=== PATIENT | female | born 1980 | race Caucasian/White ===

== ENCOUNTER 2016-12-10 11:14 | Observation (INO) | payer BC, OTHER ==
[~2016-12-10] VITALS: Ht 157.5 cm; Wt 100.4 kg
[~2016-12-10 11:14] MED LIST: FEXO1TAB58 PO
[2016-12-10] MEDS ORDERED: ALL300 PO (11:39)
[2016-12-10] MEDS ORDERED: OMEG10002 PO (11:39)
[2016-12-10] MEDS ORDERED: ATEN-173 PO (11:39)
[2016-12-10] MEDS ORDERED: HYDR25TA4 PO (11:39)
[2016-12-10 12:16] LABS: BASO % 0.1 %; BASO ABS # 0.01 K/uL (0-0.2); COMPLETE YES; EOS % 1.2 %; HEMATOCRIT 43.1 % (37-47); IG% 0.3 %; LYMPH % 27.1 %; LYMPH ABS # 2.66 K/uL (1.2-3.4); MEAN CELL VOLUME 86.7 fL (80-100); MEAN CORPUSCULAR HGB CONC 34.6 g/dl (32-36); MEAN PLATELET VOLUME 11.5 fL (7.4-10.4); MONO % 5.3 %; PLATELET COUNT 277 K/uL (130-400); RED BLOOD COUNT 4.97 M/uL (4.2-5.4); WHITE BLOOD COUNT 9.83 K/uL (4.8-10.8)
[2016-12-10 12:27] LABS: PROTHROMBIN TIME (PATIENT) 10.8 SECONDS (9.0-12.0)
--- NOTE | 2016-12-10 12:33 | DIAGNOSTIC IMAGING REPORT ---
CHEST ONE VIEW PORTABLE CLINICAL HISTORY: chest pain, palpitations cardiac arrhythmia COMPARISON STUDY: No previous studies for comparison. FINDINGS: The bones soft tissues and hemidiaphragms are normal. The cardiomediastinal silhouette is normal. The lungs are clear. The pulmonary vasculature is normal. IMPRESSION: Negative chest. Electronically signed by: Jose Alston M.D. 12/10/2016 12:32 PM Dictated Date/Time: 12/10/2016 12:32 PM
[2016-12-10 12:39] LABS: ALT/SGPT 44 U/L (12-78); AST/SGOT 19 U/L (15-37); BLOOD UREA NITROGEN 17 mg/dl (7-18); BUN/CREATININE RATIO 19.8 (10-20); CALCIUM 9.4 mg/dl (8.5-10.1); CARBON DIOXIDE 32 mmol/L (21-32); CHLORIDE 100 mmol/L (98-107); CREATININE 0.88 mg/dl (0.60-1.20); GLUCOSE 100 mg/dl (70-99); SODIUM 140 mmol/L (136-145)
[2016-12-10 12:50] LABS: ALB/GLOB RATIO 0.9 (0.9-2); ALKALINE PHOSPHATASE 40 U/L (45-117); THYROID STIMULATING HORMONE 0.985 uIu/ml (0.300-4.500)
--- NOTE | 2016-12-10 13:36 | EMERGENCY ROOM VISIT NOTE ---
History First contact with patient: 11:57 Chief Complaint: IRREGULAR HEARTBEAT Stated Complaint: IRREGULAR HEARTBEAT Nursing Triage Summary: pt c/o light headed and fell yesterday and has a ache in her chest and is concerned that she is in A fib has ahx of tachycardia and takes atenlol History of Present Illness The patient is a 36 year old female who presents to the Emergency Room with complaints of chest pain, dyspnea and tachycardia the patient states her symptoms started yesterday. The patient states that she had a syncopal episode yesterday. She states that she has felt palpitations, chest discomfort, dyspnea and tachycardia since then. She rates her discomfort a 2/10. She denies striking her head or having headache, nausea, vomiting or blurry vision. She denies any abdominal pain, nausea or vomiting. She denies any extremity swelling or pain. The patient has a history of tachycardia for which she takes atenolol. She states that she has had a Holter monitor in the past. She states she thought she could be in atrial fibrillation because her heart felt fast and irregular. She has never had atrial fibrillation in the past. The patient's mother of a pulmonary embolus. The patient denies any personal history of DVT or PE. Review of Systems A 10 system review of systems was completed with positives and pertinent negatives listed in the HPI. Past Medical/Surgical History Medical Problems: (1) Endometriosis (2) GERD (gastroesophageal reflux disease) (3) Hx of symptomatic hypotension (4) IgA nephropathy (5) Inappropriate sinus tachycardia (6) Obesity, morbid, BMI 40.0-49.9 (7) VERONICA (obstructive sleep apnea) (8) PCOS (polycystic ovarian syndrome) (9) Psoriasis (10) Sinus tachycardia (11) Syncope Surgical Problems: (1) H/O cystoscopy (2) History of dental surgery (3) History of hysterectomy (4) S/P appendectomy (5) S/P tonsillectomy Social History Smoking Status: Former Smoker Alcohol Use: none Marital Status: Housing Status: lives with significant other Occupation Status: employed Current/Historical Medications Scheduled Allopurinol (Allopurinol), 300 MG PO QAM Atenolol (Tenormin), 25 MG PO BID Fluticasone Propionate (Nasal) (Flonase Allergy Relief), 2 SPRAYS BENNIE DAILY Hydrochlorothiazide (Hctz), 25 MG PO QAM [place]-3 Fatty Acids (Fish Oil), 1,000 UNITS PO TIDM Scheduled PRN Ondansetron Hcl (Zofran), 8 MG PO Q8 PRN for Nausea Triamcinolone Acet (Aristocort 0.1%), 1 APPLN EXT BID PRN for rash Allergies Coded Allergies: Iodine (Verified Allergy, Mild, HIVES, 12/10/16) Penicillins (Verified Allergy, Mild, HIVES, 12/10/16) Shellfish (Verified Allergy, Mild, HIVES, 12/10/16) Physical Exam Vital Signs Date Time Temp Pulse Resp B/P Pulse Ox O2 Delivery O2 Flow Rate FiO2 12/10/16 14:37 97 Room Air 12/10/16 14:27 97 14 110/91 97 Room Air 12/10/16 13:31 83 16 124/96 97 Room Air 12/10/16 11:35 109 12/10/16 11:15 37.1 110 16 131/85 96 Room Air Physical Exam VITALS: Vitals are noted on the nurse's note and reviewed by myself. Vital signs stable. The patient is tachycardic with heart rate of 110 bpm. Her oxygen saturation is 96% on room air. GENERAL: This is a 36-year-old female, in no acute distress, nondiaphoretic, well-developed well-nourished. SKIN: The skin was without rashes, erythema, edema, or bruising. There is no tenting of the skin. Capillary reflex less than 2 seconds. HEAD: Normocephalic atraumatic. EARS: External auditory canals clear, tympanic membranes pearly meeks without erythema or effusion bilaterally. EYES: Pupils equal round and reactive to light and accommodation. Conjunctivae without injection, sclerae without icterus. Extraocular movements intact. NOSE: Patent, turbinates without inflammation or discharge. MOUTH: Mucous membranes moist. Tonsils are not enlarged. Pharynx without erythema or exudate. Uvula midline. Airway patent. Tongue does not deviate. NECK: Supple without nuchal rigidity. No JVD. HEART: Fast rate and regular rhythm without murmurs gallops or rubs. LUNGS: Clear to auscultation bilaterally without wheezes, rales or rhonchi. No retractions or accessory muscle use. ABDOMEN: Positive bowel sounds x 4. Soft, nontender, without masses or organomegaly. Hartley sign negative. MUSCULOSKELETAL: No muscle atrophy, erythema, or edema noted. Full range of motion in all extremities. Normal gait. Strength 5/5 throughout. NEURO: Patient was alert and oriented to person place and time. No focal neurological deficits. Medical Decision & Procedures ER Provider Diagnostic Interpretation: [~ rep ct add3]] CHEST ONE VIEW PORTABLE CLINICAL HISTORY: chest pain, palpitations cardiac arrhythmia COMPARISON STUDY: No previous studies for comparison. FINDINGS: The bones soft tissues and hemidiaphragms are normal. The cardiomediastinal silhouette is normal. The lungs are clear. The pulmonary vasculature is normal. IMPRESSION: Negative chest. CHEST CTA for PULMONARY ARTERIES CT DOSE: 540.78 mGy.cm HISTORY: Chest pain dyspnea TECHNIQUE: Multiaxial CT images of the chest were performed following the intravenous administration of contrast to evaluate the pulmonary arteries. Maximal intensity projection images were also obtained. COMPARISON STUDY: None. FINDINGS: There is a normal caliber thoracic aorta with no evidence for dissection. There is no evidence for pulmonary embolus. No pleural effusions. No pneumothorax. The liver and spleen are unremarkable. No mediastinal or hilar lymphadenopathy. The central airways are patent. The lungs are clear. IMPRESSION: No evidence for pulmonary embolus. Laboratory Results 12/10/16 11:55 Red Blood Count 4.97, Mean Corpuscular Volume 86.7, Mean Corpuscular Hemoglobin 30.0, Mean Corpuscular Hemoglobin Concent 34.6, Mean Platelet Volume 11.5, Neutrophils (%) (Auto) 66.0, Lymphocytes (%) (Auto) 27.1, Monocytes (%) (Auto) 5.3, Eosinophils (%) (Auto) 1.2, Basophils (%) (Auto) 0.1, Neutrophils # (Auto) 6.49, Lymphocytes # (Auto) 2.66, Monocytes # (Auto) 0.52, Eosinophils # (Auto) 0.12, Basophils # (Auto) 0.01 12/10/16 11:55 Test 12/10/16 00:00 12/10/16 11:55 12/10/16 11:57 12/10/16 12:03 Urine Color DK YELLOW Urine Appearance CLEAR (CLEAR) Urine pH 6.0 (4.5-7.5) Urine Specific [place] 1.037 (1.000-1.030) Urine Protein 3+ (NEG) Urine Glucose (UA) NEG (NEG) Urine Ketones 2+ (NEG) Urine Occult Blood 3+ (NEG) Urine Nitrite NEG (NEG) Urine Bilirubin NEG (NEG) Urine Urobilinogen NEG (NEG) Urine Leukocyte Esterase NEG (NEG) Urine WBC (Auto) 1-5 /hpf (0-5) Urine RBC (Auto) 10-30 /hpf (0-4) Urine Hyaline Casts (Auto) 10-30 /lpf (0-5) Urine Epithelial Cells (Auto) >30 /lpf (0-5) Urine Bacteria (Auto) NEG (NEG) Urine Test NEG (NEG) White Blood Count 9.83 K/uL (4.8-10.8) Red Blood Count 4.97 M/uL (4.2-5.4) Hemoglobin 14.9 g/dL (12.0-16.0) Hematocrit 43.1 % (37-47) Mean Corpuscular Volume 86.7 fL (80-100) Mean Corpuscular Hemoglobin 30.0 pg (25-34) Mean Corpuscular Hemoglobin Concent 34.6 g/dl (32-36) Platelet Count 277 K/uL (130-400) Mean Platelet Volume 11.5 fL (7.4-10.4) Neutrophils (%) (Auto) 66.0 % Lymphocytes (%) (Auto) 27.1 % Monocytes (%) (Auto) 5.3 % Eosinophils (%) (Auto) 1.2 % Basophils (%) (Auto) 0.1 % Neutrophils # (Auto) 6.49 K/uL (1.4-6.5) Lymphocytes # (Auto) 2.66 K/uL (1.2-3.4) Monocytes # (Auto) 0.52 K/uL (0.11-0.59) Eosinophils # (Auto) 0.12 K/uL (0-0.5) Basophils # (Auto) 0.01 K/uL (0-0.2) RDW Standard Deviation 40.7 fL (36.4-46.3) RDW Coefficient of Variation 12.8 % (11.5-14.5) Immature Granulocyte % (Auto) 0.3 % Immature Granulocyte # (Auto) 0.03 K/uL (0.00-0.02) Prothrombin Time 10.8 SECONDS (9.0-12.0) Prothromb Time International Ratio 1.0 (0.9-1.1) Activated Partial Thromboplast Time 25.8 SECONDS (21.0-31.0) Partial Thromboplastin Ratio 1.0 Anion Gap 8.0 mmol/L (3-11) Est Creatinine Clear Calc Drug Dose 98.6 ml/min Estimated GFR () 98.7 Estimated GFR (Non- 85.1 BUN/Creatinine Ratio 19.8 (10-20) Calcium Level 9.4 mg/dl (8.5-10.1) Total Bilirubin 0.8 mg/dl (0.2-1) Aspartate Amino Transf (AST/SGOT) 19 U/L (15-37) Alanine Aminotransferase (ALT/SGPT) 44 U/L (12-78) Alkaline Phosphatase 40 U/L (45-117) Total Creatine Kinase 98 U/L (26-192) Troponin I < 0.015 ng/ml (0-0.045) Total Protein 7.1 gm/dl (6.4-8.2) Albumin 3.4 gm/dl (3.4-5.0) Globulin 3.7 gm/dl (2.5-4.0) Albumin/Globulin Ratio 0.9 (0.9-2) Thyroid Stimulating Hormone (TSH) 0.985 uIu/ml (0.300-4.500) Magnesium Level 1.8 mg/dl (1.8-2.4) Bedside Troponin I 0.000 ng/ml (0-0.045) Medications Administered Medications (Trade) Dose Ordered Sig/Carolyn Route Start Time Stop Time Status Last Admin Dose Admin Potassium Chloride (Klor-Con M10) 10 meq NOW STAT PO 12/10/16 14:24 12/10/16 14:26 DC 12/10/16 15:04 10 MEQ Potassium Chloride 10 meq 10 meq NOW STAT IV 12/10/16 14:24 12/10/16 14:26 DC 12/10/16 15:04 10 MEQ Sodium Chloride (Nss 1000ml) 1,000 ml @ 999 mls/hr Q1H1M STAT IV 12/10/16 14:24 12/10/16 15:24 DC 12/10/16 15:04 999 MLS/HR Procedure The patient was monitored on a monitoring tech. She maintained a normal sinus rhythm as well as sinus tachycardia initially during her visit. ECG Indication: chest pain Rate (beats per minute): 109 Rhythm: sinus tachycardia Findings: nonspecific-ST abn ED Course The patient was seen and examined. Previous visits were reviewed. The patient does not have a fever or leukocytosis. She does not have any significant electrolyte abnormality. Troponin was not elevated. Potassium was low at 3.0. TSH was within normal limits. INR was 1.0. Urinalysis reveals hematuria and proteinuria. The patient states is typical for her secondary to her IgA nephropathy. Initial EKG revealed a sinus tachycardia. There are nonspecific ST changes which was likely rate related. A repeat EKG when her heart rate improved showed a normal sinus rhythm with improvement in the nonspecific ST changes The patient presents to the emergency department with tachycardia, chest pain, dyspnea and syncope secondary to her symptoms. The patient has a history of tachycardia and takes atenolol. Given the above findings and the fact that her mother from pulmonary embolus, the patient underwent CT imaging of the chest to evaluate for PE. This was negative. The patient does list a history of shellfish allergy. The patient states that she has never eaten shellfish but has noted redness to her hands if she touches it. She denies any iodine allergy that she knows of and states she has not come into contact with iodine. This was discussed with Dr. lazaro. The iversol contrast media does not have a cross-reactivity with shellfish allergy. Therefore, the patient underwent imaging and had no complications with the contrast. The patient would benefit from further evaluation and management the hospital given that she had a syncopal episode. This may represent a cardiogenic syncope. The case was discussed with the [facility] [place] and they will evaluate the patient. The case was discussed with Dr. Lorenzo who agrees with the assessment and treatment plan. Medical Decision DIFFERENTIAL DIAGNOSIS: Aortic dissection, myocarditis, pericarditis, cervical disc disease, costochondritis, herpes zoster, rib fracture, pleuritis, pneumonia , pulmonary embolus, tension pneumothorax, anxiety disorder, somatoform disorder , choledocholithiasis, status, esophagitis, esophageal spasm, esophageal reflux , esophageal rupture, pancreatitis, peptic ulcer disease, cardiac ischemia, ST elevation PA, acute coronary syndrome, arrhythmia, coronary artery vasospasm. vavular heart disease, coronary artery disease, among others. Impression Primary Impression: Sinus tachycardia Additional Impressions: Syncope Hypokalemia Precordial chest pain Dyspnea Departure Information Dispostion Admitted as an inpatient Condition GOOD Referrals Sunil Beard M.D. (PCP) Patient Instructions My [facility] Problem Qualifiers Additional Impressions: Syncope Syncope type: unspecified Qualified Codes: R55 - Syncope and collapse Dyspnea Dyspnea type: shortness of breath Qualified Codes: R06.02 - Shortness of breath
--- NOTE | 2016-12-10 14:06 | DIAGNOSTIC IMAGING REPORT ---
CHEST CTA for PULMONARY ARTERIES CT DOSE: 540.78 mGy.cm HISTORY: Chest pain dyspnea TECHNIQUE: Multiaxial CT images of the chest were performed following the intravenous administration of contrast to evaluate the pulmonary arteries. Maximal intensity projection images were also obtained. COMPARISON STUDY: None. FINDINGS: There is a normal caliber thoracic aorta with no evidence for dissection. There is no evidence for pulmonary embolus. No pleural effusions. No pneumothorax. The liver and spleen are unremarkable. No mediastinal or hilar lymphadenopathy. The central airways are patent. The lungs are clear. IMPRESSION: No evidence for pulmonary embolus. Electronically signed by: Jose Alston M.D. 12/10/2016 2:05 PM Dictated Date/Time: 12/10/2016 2:03 PM
[2016-12-10] MEDS ORDERED: OPTIRAY 320 IV PRN (14:15)
[2016-12-10] MEDS ORDERED: POTASSIUM CHLORIDE 10 MEQ / 100ML WTR IV STA (14:24)
[2016-12-10] MEDS ORDERED: POTASSIUM CHLORIDE 10 MEQ TABCR PO STA (14:24)
[2016-12-10] MEDS ORDERED: SODIUM CHLORIDE 0.9% 1000ML 1,000 ML IV STA (14:24)
[2016-12-10 14:37] VITALS: O2SAT 97; Ht 157.5 cm; Wt 100.4 kg
[2016-12-10 14:48] LABS: PREG INTERNAL NEGATIVE QC NEG CLEAR BACKGROUND; PREG INTERNAL POSITIVE QC POS CONTROL LINE
[2016-12-10 14:59] LABS: URINE APPEARANCE CLEAR (CLEAR); URINE BILIRUBIN NEG (NEG); URINE COLOR DK YELLOW; URINE EPITHELIAL CELL AUTO >30 /lpf (0-5); URINE NITRITE NEG (NEG); URINE SPECIFIC GRAVITY 1.037 (1.000-1.030); UROBILINOGEN NEG (NEG); ZZUR CULT IF INDIC CLEAN CATCH NO
[2016-12-10 15:11] LABS: MANUAL MICROSCOPIC REQUIRED? NO; REVIEW REQ? YES
[2016-12-10] MEDS ORDERED: ACETAMINOPHEN 325 MG TAB PO PRN (15:15)
[2016-12-10] MEDS ORDERED: ONDANSETRON INJ 2 MG/ML 2 ML VIAL IV PRN (15:15)
[2016-12-10] MEDS ORDERED: ONDA8TAB6 PO (15:21)
[2016-12-10] MEDS ORDERED: FLUT0.15 NAE (15:21)
[2016-12-10] MEDS ORDERED: TRMCR130WC EXT (15:21)
[2016-12-10] MEDS ORDERED: TRIAMCINOLONE ACET 0.1% CR 15 GM TUBE EXT PRN (15:30)
[2016-12-10] MEDS ORDERED: ONDANSETRON 8 MG TAB PO PRN (15:30)
[2016-12-10] MEDS ORDERED: IV FLUIDS COMPLETED PRN (15:45)
--- NOTE | 2016-12-10 15:56 | History and Physical ---
History & Physical Date & Time of Service: December 10, 2016 at 15:24 Chief Complaint: Irregular Heartbeat Primary Care Physician: Sunil Beard M.D. History of Present Illness Source: patient, clinic records, hospital records This is a 36 year old female with PMH of inappropriate sinus tachycardia, hx of symptomatic hypotension per prior cardiology note, IgA nephropathy, and other problems listed below, who presents to the ED for syncopal episode. Patient states over the weekend 2-3 days ago she was not eating/ drinking well and noted lightheadedness upon standing, palpitations, elevated heart rate. Then yesterday in the sandblaster glass before eating anything she was showering and became lightheaded, vision blacked out, and then lost consciousness. This was unwitnessed. She denies any known head trauma or injury. She is unsure of the duration of LOC. There was no tongue biting or incontinence. She states heart rate was 154 when she awoke. After she awoke she had chest discomfort described as soreness/ dull ache rated 2/10 which was non-radiating, non-exertional. Currently symptoms are resolved and she feels comfortable. Denies fever, chills , URI symptoms, cough, SOB numbness, weakness, speech or swallowing difficulty, N/V/D, dysuria, frequency, edema, calf pain, weight change, anxiety, rash. Denies prior hx of syncope. She takes atenolol 25 mg BID as well as HCTZ since June for fluid retention. No recent med changes. She states her BP has been running 140/90 at home. Past Medical/Surgical History Medical Problems: (1) Endometriosis Status: Chronic (2) GERD (gastroesophageal reflux disease) Status: Chronic (3) Hx of symptomatic hypotension Status: Chronic (4) IgA nephropathy Status: Chronic (5) Inappropriate sinus tachycardia Status: Chronic (6) Obesity, morbid, BMI 40.0-49.9 Status: Chronic (7) VERONICA (obstructive sleep apnea) Permanent Comment: resolved with weight loss per patient; not on CPAP Status: Chronic (8) PCOS (polycystic ovarian syndrome) Status: Chronic (9) Psoriasis Status: Chronic Surgical Problems: (1) H/O cystoscopy Status: Chronic (2) History of dental surgery Status: Chronic (3) History of hysterectomy Status: Resolved (4) S/P appendectomy Status: Resolved (5) S/P tonsillectomy Status: Chronic Family History FH: CAD (coronary artery disease) GRANDFATHER (sudden cardiac in grandfather in his 80s) FH: pulmonary embolism MOTHER ( of PE age 41) Social History Smoking Status: Former Smoker (quit 19 years ago) Alcohol Use: socially Drug Use: none Marital Status: 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[employer]) Allergies Coded Allergies: Iodine (Verified Allergy, Mild, HIVES, 12/10/16) Penicillins (Verified Allergy, Mild, HIVES, 12/10/16) Shellfish (Verified Allergy, Mild, HIVES, 12/10/16) Home Medications Scheduled Allopurinol (Allopurinol), 300 MG PO QAM Atenolol (Tenormin), 25 MG PO BID Fluticasone Propionate (Nasal) (Flonase Allergy Relief), 2 SPRAYS BENNIE DAILY Hydrochlorothiazide (Hctz), 25 MG PO QAM [place]-3 Fatty Acids (Fish Oil), 1,000 UNITS PO TIDM Scheduled PRN Ondansetron Hcl (Zofran), 8 MG PO Q8 PRN for Nausea Triamcinolone Acet (Aristocort 0.1%), 1 APPLN EXT BID PRN for rash Review of Systems Ten systems reviewed and negative except as noted in HPI. Physical Exam Vital Signs Date Time Temp Pulse Resp B/P Pulse Ox O2 Delivery O2 Flow Rate FiO2 12/10/16 14:37 97 Room Air 12/10/16 14:27 97 14 110/91 97 Room Air 12/10/16 13:31 83 16 124/96 97 Room Air 12/10/16 11:35 109 12/10/16 11:15 37.1 110 16 131/85 96 Room Air General Appearance: no apparent distress, + obese, + pertinent finding ( pleasant alert 36 year old female, lying in bed, no distress) Head: normocephalic, atraumatic Eyes: normal inspection, PERRL, EOMI ENT: hearing grossly normal, pharynx normal Neck: supple, no JVD, no carotid bruits, trachea midline Respiratory/Chest: lungs clear, normal breath sounds, no respiratory distress, no accessory muscle use Cardiovascular: no murmur, + tachycardia (mild tachycardia rate 90s, regular rhythm) Abdomen/GI: normal bowel sounds, non tender, soft Extremities/Musculoskelatal: no calf tenderness, no pedal edema Neurologic/Psych: houseman II-XII nml as tested, no motor/sensory deficits, alert, normal mood/affect, oriented x 3 Skin: normal color, warm/dry Diagnostics Laboratory Results Results Past 24 Hours Test 12/10/16 00:00 12/10/16 11:55 12/10/16 11:57 12/10/16 12:03 Range/Units Urine Color DK YELLOW Urine Appearance CLEAR CLEAR Urine pH 6.0 4.5-7.5 Urine Specific [place] 1.037 1.000-1.030 Urine Protein 3+ NEG Urine Glucose (UA) NEG NEG Urine Ketones 2+ NEG Urine Occult Blood 3+ NEG Urine Nitrite NEG NEG Urine Bilirubin NEG NEG Urine Urobilinogen NEG NEG Urine Leukocyte Esterase NEG NEG Urine Test NEG NEG White Blood Count 9.83 4.8-10.8 K/uL Red Blood Count 4.97 4.2-5.4 M/uL Hemoglobin 14.9 12.0-16.0 g/dL Hematocrit 43.1 37-47 % Mean Corpuscular Volume 86.7 80-100 fL Mean Corpuscular Hemoglobin 30.0 25-34 pg Mean Corpuscular Hemoglobin Concent 34.6 32-36 g/dl Platelet Count 277 130-400 K/uL Mean Platelet Volume 11.5 7.4-10.4 fL Neutrophils (%) (Auto) 66.0 % Lymphocytes (%) (Auto) 27.1 % Monocytes (%) (Auto) 5.3 % Eosinophils (%) (Auto) 1.2 % Basophils (%) (Auto) 0.1 % Neutrophils # (Auto) 6.49 1.4-6.5 K/uL Lymphocytes # (Auto) 2.66 1.2-3.4 K/uL Monocytes # (Auto) 0.52 0.11-0.59 K/uL Eosinophils # (Auto) 0.12 0-0.5 K/uL Basophils # (Auto) 0.01 0-0.2 K/uL RDW Standard Deviation 40.7 36.4-46.3 fL RDW Coefficient of Variation 12.8 11.5-14.5 % Immature Granulocyte % (Auto) 0.3 % Immature Granulocyte # (Auto) 0.03 0.00-0.02 K/uL Prothrombin Time 10.8 9.0-12.0 SECONDS Prothromb Time International Ratio 1.0 0.9-1.1 Activated Partial Thromboplast Time 25.8 21.0-31.0 SECONDS Partial Thromboplastin Ratio 1.0 Sodium Level 140 136-145 mmol/L Potassium Level 3.0 3.5-5.1 mmol/L Chloride Level 100 98-107 mmol/L Carbon Dioxide Level 32 21-32 mmol/L Anion Gap 8.0 3-11 mmol/L Blood Urea Nitrogen 17 7-18 mg/dl Creatinine 0.88 0.60-1.20 mg/dl Est Creatinine Clear Calc Drug Dose 98.6 ml/min Estimated GFR () 98.7 Estimated GFR (Non- 85.1 BUN/Creatinine Ratio 19.8 10-20 Random Glucose 100 70-99 mg/dl Calcium Level 9.4 8.5-10.1 mg/dl Total Bilirubin 0.8 0.2-1 mg/dl Aspartate Amino Transf (AST/SGOT) 19 15-37 U/L Alanine Aminotransferase (ALT/SGPT) 44 12-78 U/L Alkaline Phosphatase 40 45-117 U/L Total Creatine Kinase 98 26-192 U/L Troponin I < 0.015 0-0.045 ng/ml Total Protein 7.1 6.4-8.2 gm/dl Albumin 3.4 3.4-5.0 gm/dl Globulin 3.7 2.5-4.0 gm/dl Albumin/Globulin Ratio 0.9 0.9-2 Thyroid Stimulating Hormone (TSH) 0.985 0.300-4.500 uIu/ml Bedside Troponin I 0.000 0-0.045 ng/ml Diagnostic Radiology CHEST ONE VIEW PORTABLE CLINICAL HISTORY: chest pain, palpitations cardiac arrhythmia COMPARISON STUDY: No previous studies for comparison. FINDINGS: The bones soft tissues and hemidiaphragms are normal. The cardiomediastinal silhouette is normal. The lungs are clear. The pulmonary vasculature is normal. IMPRESSION: Negative chest. ] CHEST CTA for PULMONARY ARTERIES CT DOSE: 540.78 mGy.cm HISTORY: Chest pain dyspnea TECHNIQUE: Multiaxial CT images of the chest were performed following the intravenous administration of contrast to evaluate the pulmonary arteries. Maximal intensity projection images were also obtained. COMPARISON STUDY: None. FINDINGS: There is a normal caliber thoracic aorta with no evidence for dissection. There is no evidence for pulmonary embolus. No pleural effusions. No pneumothorax. The liver and spleen are unremarkable. No mediastinal or hilar lymphadenopathy. The central airways are patent. The lungs are clear. IMPRESSION: No evidence for pulmonary embolus. EKG sinus tachycardia, rate 109, no ischemic findings, qtc= 482 Impression Assessment and Plan SYNCOPE With associated lightheadedness, palpitations, chest discomfort Possibly related to sinus tachycardia, ? orthostatic hypotension, ruled out for PE with negative CT chest Hx inappropriate sinus tachycardia, hx of symptomatic hypotension per records HR improving- initially up to 120s - improved to 90s; BP 130s-110s systolic EKG shows sinus tachycardia TSH is WNL; troponin negative 03/2013 echo- EF = 57% Check orthostatic vitals Will give IVF's Hold HCTZ Continue atenolol with parameters Monitor in telemetry PROLONGED QT Qtc is 482 Avoid QT prolonging medications Recheck EKG in am HYPOKALEMIA Likely due to HCTZ and poor PO intake PO and IV replacement Check magnesium Recheck PRP in am IgA NEPHROPATHY Followed with [facility] in the past Plans to see Dr. Berg later this month DVT PROPHYLAXIS Lovenox SQ FULL CODE DISPOSITION Follows with Dr. Beard for primary care Patient seen in collaboration with Dr. Carrillo. Please see his addendum. ADDENDUM: This is a 36 year old female with a PMH of IgA nephropathy, inappropriate sinus tachycardia followed by cardiology presented due to syncope and loss of consciousness. States that this occurred one day prior to arrival; she passed out in the shower , does not recall this. this has never happened to her before She takes atenolol for her sinus tachycardia - as per cardiology she takes HCTZ due to IgA nephropathy and edema No new medications. Plan is to observe in tele overnight IVFs, hold HCTZ orthostatic blood pressure ambulate in hallways recheck EKG and labwork in AM if no problems overnight, plan to d/c home in AM with outpatient PCP, cardiology , nephrology follow-ups Advanced Directives Existing Living Will: No Existing Power of Pay Station Collector: No VTE Prophylaxis VTE Risk Assessment Done? Y/N: Yes Risk Level: Moderate
[2016-12-10 17:28] VITALS: BP 130/92; PULSE 100; TEMP 36.6; O2SAT 98
[2016-12-10] MEDS ORDERED: POTASSIUM CHLORIDE 10 MEQ TABCR PO ONE (18:00)
[2016-12-10] MEDS: SODIUM CHLORIDE 0.9% 1000ML 1,000 ML IV SCH (18:37)
[2016-12-10 19:12] VITALS: BP 113/76; PULSE 87; TEMP 36.7; O2SAT 96
[2016-12-10] MEDS: OMEGA-3 (PURIFIED FISH OIL) 1 GM CAP PO SCH (20:37)
[2016-12-10] MEDS ORDERED: ENOXAPARIN 40 MG/0.4 ML SYR SC SCH (21:00)
[2016-12-10 22:28] VITALS: O2SAT 98
[2016-12-10 23:39] VITALS: BP 110/76; PULSE 90; TEMP 36.8; O2SAT 95
[2016-12-11] MEDS: SODIUM CHLORIDE 0.9% 1000ML 1,000 ML IV SCH (03:44)
[2016-12-11 04:23] VITALS: BP 106/70; PULSE 82; TEMP 36.5; O2SAT 97
[2016-12-11 06:50] LABS: BUN/CREATININE RATIO 17.8 (10-20); CALCIUM 8.5 mg/dl (8.5-10.1); CREATININE 0.64 mg/dl (0.60-1.20); POTASSIUM 3.3 mmol/L (3.5-5.1)
[2016-12-11 07:08] VITALS: BP 100/63; PULSE 76; TEMP 36.9; O2SAT 96
[2016-12-11] MEDS ORDERED: POTASSIUM CHLORIDE 20 MEQ TABCR PO ONE (07:45)
[2016-12-11] MEDS: OMEGA-3 (PURIFIED FISH OIL) 1 GM CAP PO SCH ×2 (08:03→11:26)
[2016-12-11] MEDS ORDERED: ALLOPURINOL 300 MG TAB PO SCH (09:00)
[2016-12-11] MEDS ORDERED: FLUTICASONE PROPIONATE NA SPR 16 GM BTL NAE SCH (09:00)
[2016-12-11 12:06] VITALS: BP 107/70; PULSE 77; TEMP 36.8; O2SAT 95
--- NOTE | 2016-12-11 13:33 | Progress Note ---
Medicine Progress Note Date & Time of Visit: December 11, 2016 at 13:16. Subjective Pt was seen and examined Sitting in bed very comfortable eating lunch with no distress Pt said that she feels fine fine she denies any chest pain, palpitation, dizziness and SOB Objective Last 8 Hrs Date Time Temp Pulse Resp B/P Pulse Ox O2 Delivery O2 Flow Rate FiO2 12/11/16 12:06 36.8 77 22 107/70 95 Room Air 12/11/16 12:00 Room Air 12/11/16 08:00 Room Air 12/11/16 07:08 36.9 76 20 100/63 96 Room Air Physical Exam: General- No acute distress Head- atraumatic Eyes- PERRL, EOMI ENT- oropharynx clear Neck- supple, no JVD Lungs- clear to auscultation, NO wheezing Heart- regular rhythm; no murmur Abdomen- normal bowel sounds, soft Extremities- no pretibial edema, no calf tenderness Neuro- alert, oriented x 3; PERRL, EOMI; no facial palsy Skin- warm & dry Laboratory Results: Last 24 Hours Test 12/11/16 05:57 Sodium Level 142 mmol/L Potassium Level 3.3 mmol/L Chloride Level 106 mmol/L Carbon Dioxide Level 33 mmol/L Anion Gap 3.0 mmol/L Blood Urea Nitrogen 11 mg/dl Creatinine 0.64 mg/dl Est Creatinine Clear Calc Drug Dose 136.0 ml/min Estimated GFR () 134.0 Estimated GFR (Non- 115.6 BUN/Creatinine Ratio 17.8 Random Glucose 85 mg/dl Calcium Level 8.5 mg/dl Assessment & Plan SYNCOPE Possibly related to sinus tachycardia vs hypovolemia vs vasovagal EKG on admission showed sinus tachycardia TSH is WNL; troponin negative EKG this morning showed NSR 03/2013 echo- EF = 57% Tele monitor showed no arrhythmia episode Consider cardio follow up if symptoms continue CT chest negative Asymptomatic Tachycardia possible related to electrolytes imbalance due to Low K EKG this morning normal Continue beta mariajose HYPOKALEMIA Likely due to HCTZ and poor PO intake K on admission was 3 K today 3.3 K replaced Will consider to start on potassium supplement Continue monitor K IgA NEPHROPATHY Followed with [facility] in the past Plans to see Dr. Berg later this month stable DVT PROPHYLAXIS Lovenox SQ FULL CODE DISPOSITION Follows with Dr. Beard for primary care Will discharge today home Current Inpatient Medications: Current Inpatient Medications Medications (Trade) Dose Ordered Sig/Carolyn Route Start Time Stop Time Status Last Admin Dose Admin Ioversol (Optiray 320) 100 ml UD PRN IV 12/10/16 14:15 12/14/16 14:14 Enoxaparin Sodium (Lovenox Inj) 40 mg HS SC 12/10/16 21:00 01/09/17 20:59 12/10/16 20:38 40 MG Acetaminophen 650 mg 650 mg Q4H PRN PO 12/10/16 15:15 01/09/17 15:14 Sodium Chloride (Nss 1000ml) 1,000 ml @ 80 mls/hr [id number] IV 12/10/16 15:30 01/09/17 15:29 12/11/16 03:44 80 MLS/HR Allopurinol (Zyloprim Tab) 300 mg QAM PO 12/11/16 09:00 01/10/17 08:59 12/11/16 08:04 300 MG Atenolol (Tenormin Tab) 25 mg BID PO 12/10/16 21:00 01/09/17 20:59 12/11/16 08:03 25 MG Fluticasone Propionate (Flonase Nasal [place]) 2 sprays DAILY BENNIE 12/11/16 09:00 01/10/17 08:59 Fish Oil ([place]-3 (Purified Fish Oil) Cap) 1 gm TIDM PO 12/10/16 17:21 01/09/17 17:59 12/11/16 11:26 1 GM Triamcinolone Acetonide (Kenalog 0.1% Cream) 1 appln BID PRN EXT 12/10/16 15:30 01/09/17 15:29 Miscellaneous (Iv Fluids Completed) 1 ea PRN PRN N/A 12/10/16 15:45 12/10/17 15:44
[2016-12-11] MEDS ORDERED: POTA10TA30 PO (15:35)
[2016-12-11 15:38] VITALS: BP 107/70; PULSE 74; TEMP 37; O2SAT 96
--- NOTE | 2016-12-11 15:40 | Discharge Instructions ---
Discharge Instructions Date of Service December 11, 2016. Admission Reason for Admission: Sinus Tachycardia Synope Discharge Discharge Diagnosis / Problem: Syncope, Tachycardia, Hypokalemia Discharge Goals Goal(s): Decrease discomfort, Improve function, Improve disease control Activity Recommendations Activity Limitations: resume your previous activity . Instructions / Follow-Up Instructions / Follow-Up Follow up with your PCP Dr. Beard on 12/17 @ 1:15pm Increase potassium intake in your diet Check BMP in 1 week for low potassium Current Hospital Diet Patient's current hospital diet: AHA Diet (Heart Healthy) Discharge Diet Recommended Diet: AHA Diet (Heart Healthy) Pending Studies Studies pending at discharge: no Medical Emergencies . Who to Call and When: Medical Emergencies: If at any time you feel your situation is an emergency, please call 911 immediately. . Non-Emergent Contact Non-Emergency issues call your: Primary Care Provider . . "Provider Documentation" section prepared by Melody Carrillo. . VTE Core Measure Inpt VTE Proph given/why not?: Enoxaparin (Lovenox)SQ
[2016-12-11 16:00] VITALS: BP 107/70; PULSE 74; TEMP 37; O2SAT 96
--- NOTE | 2016-12-11 18:53 | Discharge Summary ---
Discharge Summary Date of Service December 11, 2016. Discharge Summary Admission Date: December 10, 2016 at 15:05 Discharge Date: December 11, 2016 Discharge Disposition: Home Principal Diagnosis: Syncope Secondary Diagnoses/Problems: Syncope Tachycardia Hypokalemia IgA NEPHROPATHY Procedures: CHEST CTA for PULMONARY ARTERIES CT DOSE: 540.78 mGy.cm HISTORY: Chest pain dyspnea TECHNIQUE: Multiaxial CT images of the chest were performed following the intravenous administration of contrast to evaluate the pulmonary arteries. Maximal intensity projection images were also obtained. COMPARISON STUDY: None. FINDINGS: There is a normal caliber thoracic aorta with no evidence for dissection. There is no evidence for pulmonary embolus. No pleural effusions. No pneumothorax. The liver and spleen are unremarkable. No mediastinal or hilar lymphadenopathy. The central airways are patent. The lungs are clear. IMPRESSION: No evidence for pulmonary embolus. Electronically signed by: Jose Alston M.D. 12/10/2016 2:05 PM Dictated Date/Time: 12/10/2016 2:03 PM Medication Reconciliation New Medications: Potassium Chloride (Potassium Chloride Cr) 10 Meq Tab 10 MEQ PO DAILY for 30 Days, #30 TAB Continued Medications: Allopurinol (Allopurinol) 300 Mg Tab 300 MG PO QAM Atenolol (Tenormin) 25 Mg Tab 25 MG PO BID, TAB Fluticasone Propionate (Nasal) (Flonase Allergy Relief) 50 Mcg/Act Spr 2 SPRAYS BENNIE DAILY Hydrochlorothiazide (Hctz) 25 Mg Tab 25 MG PO QAM, TAB [place]-3 Fatty Acids (Fish Oil) 1,000 Mg Cap 1000 UNITS PO TIDM Ondansetron Hcl (Zofran) 8 Mg Tab 8 MG PO Q8 PRN for Nausea, TAB Triamcinolone Acet (Aristocort 0.1%) 90 Appln/30 Gm Cr 1 APPLN EXT BID PRN for rash Admission Information HPI (per Admitting provider): This is a 36 year old female with PMH of inappropriate sinus tachycardia, hx of symptomatic hypotension per prior cardiology note, IgA nephropathy, and other problems listed below, who presents to the ED for syncopal episode. Patient states over the weekend 2-3 days ago she was not eating/ drinking well and noted lightheadedness upon standing, palpitations, elevated heart rate. 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 This was unwitnessed. She denies any known head trauma or injury. She is unsure of the duration of LOC. There was no tongue biting or incontinence. She states heart rate was 154 when she awoke. After she awoke she had chest discomfort described as soreness/ dull ache rated 2/10 which was non-radiating, non-exertional. Currently symptoms are resolved and she feels comfortable. Denies fever, chills , URI symptoms, cough, SOB numbness, weakness, speech or swallowing difficulty, N/V/D, dysuria, frequency, edema, calf pain, weight change, anxiety, rash. Denies prior hx of syncope. She takes atenolol 25 mg BID as well as HCTZ since June for fluid retention. No recent med changes. She states her BP has been running 140/90 at home. Physical Exam (per Admitting): General Appearance: no apparent distress, + obese, + pertinent finding ( pleasant alert 36 year old female, lying in bed, no distress) Head: normocephalic, atraumatic Eyes: normal inspection, PERRL, EOMI ENT: hearing grossly normal, pharynx normal Neck: supple, no JVD, no carotid bruits, trachea midline Respiratory/Chest: lungs clear, normal breath sounds, no respiratory distress, no accessory muscle use Cardiovascular: no murmur, + tachycardia (mild tachycardia rate 90s, regular rhythm) Abdomen/GI: normal bowel sounds, non tender, soft Extremities/Musculoskelatal: no calf tenderness, no pedal edema Neurologic/Psych: research technician II-XII nml as tested, no motor/sensory deficits, alert , normal mood/affect, oriented x 3 Skin: normal color, warm/dry Hospital Course SYNCOPE Possibly related to sinus tachycardia vs hypovolemia vs vasovagal EKG on admission showed sinus tachycardia TSH is WNL; troponin negative EKG this morning showed NSR 03/2013 echo- EF = 57% Tele monitor showed no arrhythmia episode Consider cardio follow up if symptoms continue CT chest negative Asymptomatic Tachycardia possible related to electrolytes imbalance due to Low K EKG this morning normal Continue beta mariajose HYPOKALEMIA Likely due to HCTZ and poor PO intake K on admission was 3 K today 3.3 K replaced Will consider to start on potassium supplement Continue monitor K IgA NEPHROPATHY Followed with [place] [facility] in the past Plans to see Dr. Berg later this month stable DVT PROPHYLAXIS Lovenox SQ FULL CODE DISPOSITION Follows with Dr. Beard for primary care Will discharge today home Total time spent on discharge = 35 minutes This includes examination of the patient, discharge planning, medication reconciliation, and communication with other providers. Discharge Instructions Discharge Instructions Date of Service December 11, 2016. Admission Reason for Admission: Sinus Tachycardia Synope Discharge Discharge Diagnosis / Problem: Syncope, Tachycardia, Hypokalemia Discharge Goals Goal(s): Decrease discomfort, Improve function, Improve disease control Activity Recommendations Activity Limitations: resume your previous activity . Instructions / Follow-Up Instructions / Follow-Up Follow up with your PCP Dr. Beard on 12/17 @ 1:15pm Increase potassium intake in your diet Check BMP in 1 week for low potassium Current Hospital Diet Patient's current hospital diet: AHA Diet (Heart Healthy) Discharge Diet Recommended Diet: AHA Diet (Heart Healthy) Pending Studies Studies pending at discharge: no Medical Emergencies . Who to Call and When: Medical Emergencies: If at any time you feel your situation is an emergency, please call 911 immediately. . Non-Emergent Contact Non-Emergency issues call your: Primary Care Provider . . "Provider Documentation" section prepared by Melody Carrillo. . VTE Core Measure Inpt VTE Proph given/why not?: Enoxaparin (Lovenox)SQ Additional Copies To Sunil Beard M.D.
== END 2016-12-11 16:19 | disposition home or self-care (01) ==
LOC: ENRESERVDT → ENRESERVTM → CANRESERV → C.EDB 11:15 → C.MED 15:05
PROVIDERS: ADMIT Family Medicine; ATTEND Internal Medicine
DX: R55 Syncope and collapse (principal); R00.0 Tachycardia, unspecified; E78.6 Lipoprotein deficiency; N02.8 Recurrent and persistent hematuria with other morphologic changes; K21.9 Gastro-esophageal reflux disease without esophagitis; G47.33 Obstructive sleep apnea (adult) (pediatric); E66.01 Morbid (severe) obesity due to excess calories; Z68.41 Body mass index [BMI] 40.0-44.9, adult; L40.9 Psoriasis, unspecified; Z87.891 Personal history of nicotine dependence; Z82.49 Family history of ischemic heart disease and other diseases of the circulatory system; Z83.2 Family history of diseases of the blood and blood-forming organs and certain disorders involving the immune mechanism

== ENCOUNTER 2017-04-28 16:29 | Inpatient (IN) | payer OTHER ==
[~2017-04-28] VITALS: Ht 157.5 cm; Wt 92.5 kg
[~2017-04-28 16:29] MED LIST changes: +ALL300 PO; +ATEN-173 PO; -FEXO1TAB58 PO; +FLUT0.15 NAE; +HYDR25TA4 PO; +OMEG10002 PO; +ONDA8TAB6 PO; +TRMCR130WC EXT
[2017-04-28] MEDS ORDERED: SODIUM CHLORIDE 0.9% 1000ML 1,000 ML IV STA ×2 (17:33→18:43)
[2017-04-28] MEDS ORDERED: ONDANSETRON INJ 2 MG/ML 2 ML VIAL IV STA (17:33)
[2017-04-28] MEDS ORDERED: LEVAQUIN 750MG / 150ML D5W IV STA (17:33)
--- NOTE | 2017-04-28 17:37 | EMERGENCY ROOM VISIT NOTE ---
History Report prepared by Babs: Robin Rosado Under the Supervision of: Dr. Zeeshan Urrutia D.O. First contact with patient: 17:26 Chief Complaint: URINARY SYMPTOMS Stated Complaint: KIDNEY INFECTION/UTI?? History of Present Illness The patient is a 37 year old female who presents to the Emergency Room with complaints of abnormal urinary symptoms that began last week. She is experiencing urinary frequency, foul odor, cloudiness, and burning with urination. She is currently being treated for a UTI with Macrobid. She states that her symptoms are not improving. Once she began taking the Macrobid, she began having bilateral lower back pain. She was told to go to [facility] because her PCP is full. [facility] sent her here to the ER for further evaluation. She notes that she had a fever yesterday, but none today. She is nauseated. She did not urinate today. She denies any vaginal discharge or bleeding. She has a past history of a hysterectomy. history of hysterectomy no vaginal discharge or bleeding Source of History: patient Onset: 1 week ago Position: other () Symptom Intensity: moderate Quality: other (Frequency, burning, cloudy, and odorous) Timing: worsening Associated Symptoms: + nausea, + back pain, No fevers Review of Systems See HPI for pertinent positives & negatives. A total of 10 systems reviewed and were otherwise negative. Past Medical & Surgical Medical Problems: (1) Endometriosis (2) GERD (gastroesophageal reflux disease) (3) Hx of symptomatic hypotension (4) IgA nephropathy (5) Inappropriate sinus tachycardia (6) Obesity, morbid, BMI 40.0-49.9 (7) VERONICA (obstructive sleep apnea) (8) PCOS (polycystic ovarian syndrome) (9) Psoriasis (10) Sinus tachycardia (11) Syncope Surgical Problems: (1) H/O cystoscopy (2) History of dental surgery (3) History of hysterectomy (4) S/P appendectomy (5) S/P tonsillectomy Family History FH: CAD (coronary artery disease) GRANDFATHER (sudden cardiac in grandfather in his 80s) FH: pulmonary embolism MOTHER ( of PE age 41) Social History Smoking Status: Former Smoker Alcohol Use: occasionally Drug Use: none Marital Status: Housing Status: lives with significant other Occupation Status: employed Current/Historical Medications Scheduled Allopurinol (Allopurinol), 300 MG PO QAM Atenolol (Tenormin), 25 MG PO BID Fluticasone Propionate (Nasal) (Flonase Allergy Relief), 2 SPRAYS BENNIE DAILY Hydrochlorothiazide (Hctz), 25 MG PO QAM [place]-3 Fatty Acids (Fish Oil), 1,000 UNITS PO TIDM Potassium Chloride (Potassium Chloride Er), 20 MEQ PO DAILY Scheduled PRN Ondansetron Hcl (Zofran), 8 MG PO Q8 PRN for Nausea Triamcinolone Acet (Aristocort 0.1%), 1 APPLN EXT BID PRN for rash Allergies Coded Allergies: Iodine (Verified Allergy, Mild, HIVES, 12/10/16) Penicillins (Verified Allergy, Mild, HIVES, 12/10/16) Shellfish (Verified Allergy, Mild, HIVES, 12/10/16) Physical Exam Vital Signs Date Time Temp Pulse Resp B/P (MAP) Pulse Ox O2 Delivery O2 Flow Rate FiO2 04/28/17 18:51 96 18 126/86 100 Room Air 04/28/17 18:24 88 04/28/17 17:58 86 19 110/67 99 Room Air 04/28/17 16:55 37.0 90 20 107/74 99 Room Air Physical Exam GENERAL: Patient is awake, alert, and in no acute distress. Patient is resting comfortably and showing no signs of anxiety EYES: The conjunctivae are clear. The pupils are round and reactive. EARS, NOSE, MOUTH AND THROAT: The nose is without any evidence of any deformity. Mucous membranes are moist tongue is midline NECK: The neck is nontender and supple. RESPIRATORY: Normal respiratory effort is noted there is no evidence of wheezing rhonchi or rales CARDIOVASCULAR: Regular rate and rhythm noted there no murmurs rubs or gallops normal S1 normal S2 GASTROINTESTINAL: The abdomen is soft. Mildly distended. Bowel sounds are present in all quadrants. Abdomen is nontender. No specific guarding or rigidity. BACK: Bilateral CVA tenderness to percussion. No midline tenderness or or step- off noted range of motion in flexion extension as well as rotation no signs of muscle spasm noted MUSCULOSKELETAL/EXTREMITIES: There is no evidence of gross deformity full range of motion is noted in the hips and shoulders SKIN: There is no obvious evidence of any rash. There are no petechiae, pallor or cyanosis noted. NEUROLOGIC: Patient is awake alert and oriented x3 Medical Decision & Procedures ER Provider Diagnostic Interpretation: Radiology results as stated below per my review and radiologist interpretation: CT SCAN OF THE ABDOMEN AND PELVIS WITHOUT CONTRAST CLINICAL HISTORY: Flank pain. Urinary tract infection. COMPARISON STUDY: March 11, 2013 TECHNIQUE: CT scan of the abdomen and pelvis was performed from the lung bases to the proximal femurs. Images are reviewed in the axial, sagittal, and coronal planes. IV contrast was not administered for this examination. A dose lowering technique was utilized adhering to the principles of ALARA. CT DOSE: 758.66 mGy.cm FINDINGS: Lower chest: There are dependent bibasilar opacities, statistically atelectatic. Liver: The unenhanced liver is normal in size, contour, and attenuation. There is no intrahepatic biliary ductal dilatation. Gallbladder: Unremarkable. Spleen: Normal in size and attenuation. Pancreas: Unremarkable. Adrenal glands: Unremarkable. Kidneys: No renal, ureteral, or bladder calculi are visualized. Bowel: There are no transition zones to indicate bowel obstruction. The appendix appears surgically absent. There is no evidence of acute diverticulitis. Peritoneum: There is no intraperitoneal free air or abdominal ascites. Vasculature: The abdominal aorta is normal in course and caliber. Adenopathy: None. Pelvic viscera: There is mild prominence the right ovary which is likely normal for age. The uterus is surgically absent. Skeletal structures: No destructive osseous lesions are seen. IMPRESSION: 1. No evidence of bowel obstruction. No evidence of free air 2. No renal, ureteral, or bladder calculi identified 3. Surgically absent appendix. No evidence of acute diverticulitis. Electronically signed by: Curly Mora M.D. 04/28/2017 6:14 PM Dictated Date/Time: 04/28/2017 6:09 PM Laboratory Results 04/28/17 17:50 Red Blood Count 4.40, Mean Corpuscular Volume 88.9, Mean Corpuscular Hemoglobin 30.9, Mean Corpuscular Hemoglobin Concent 34.8, Mean Platelet Volume 11.3, Neutrophils (%) (Auto) 76.6, Lymphocytes (%) (Auto) 8.4, Monocytes (%) (Auto) 6.8, Eosinophils (%) (Auto) 7.9, Basophils (%) (Auto) 0.1, Neutrophils # (Auto) 9.45, Lymphocytes # (Auto) 1.04, Monocytes # (Auto) 0.84, Eosinophils # (Auto) 0.97, Basophils # (Auto) 0.01 04/28/17 17:50 Test 04/28/17 17:43 04/28/17 17:50 Urine Color YELLOW Urine Appearance CLOUDY (CLEAR) Urine pH 5.0 (4.5-7.5) Urine Specific [place] 1.020 (1.000-1.030) Urine Protein 2+ (NEG) Urine Glucose (UA) NEG (NEG) Urine Ketones NEG (NEG) Urine Occult Blood 3+ (NEG) Urine Nitrite NEG (NEG) Urine Bilirubin NEG (NEG) Urine Urobilinogen NEG (NEG) Urine Leukocyte Esterase SMALL (NEG) Urine WBC (Auto) 10-30 /hpf (0-5) Urine RBC (Auto) >30 /hpf (0-4) Urine Hyaline Casts (Auto) 1-5 /lpf (0-5) Urine Epithelial Cells (Auto) >30 /lpf (0-5) Urine Bacteria (Auto) 3+ (NEG) Urine Pathogenic Casts 10-20 GRANULAR CASTS /lpf (0) Urine Yeast (Auto) BUDDING (NONE PRSENT) White Blood Count 12.34 K/uL (4.8-10.8) Red Blood Count 4.40 M/uL (4.2-5.4) Hemoglobin 13.6 g/dL (12.0-16.0) Hematocrit 39.1 % (37-47) Mean Corpuscular Volume 88.9 fL (80-100) Mean Corpuscular Hemoglobin 30.9 pg (25-34) Mean Corpuscular Hemoglobin Concent 34.8 g/dl (32-36) Platelet Count 238 K/uL (130-400) Mean Platelet Volume 11.3 fL (7.4-10.4) Neutrophils (%) (Auto) 76.6 % Lymphocytes (%) (Auto) 8.4 % Monocytes (%) (Auto) 6.8 % Eosinophils (%) (Auto) 7.9 % Basophils (%) (Auto) 0.1 % Neutrophils # (Auto) 9.45 K/uL (1.4-6.5) Lymphocytes # (Auto) 1.04 K/uL (1.2-3.4) Monocytes # (Auto) 0.84 K/uL (0.11-0.59) Eosinophils # (Auto) 0.97 K/uL (0-0.5) Basophils # (Auto) 0.01 K/uL (0-0.2) RDW Standard Deviation 40.9 fL (36.4-46.3) RDW Coefficient of Variation 12.7 % (11.5-14.5) Immature Granulocyte % (Auto) 0.2 % Immature Granulocyte # (Auto) 0.03 K/uL (0.00-0.02) Anion Gap 12.0 mmol/L (3-11) Est Creatinine Clear Calc Drug Dose 0.8 ml/min Estimated GFR () 23.2 Estimated GFR (Non- 20.0 BUN/Creatinine Ratio 8.8 (10-20) Calcium Level 9.5 mg/dl (8.5-10.1) Total Bilirubin 0.9 mg/dl (0.2-1) Direct Bilirubin 0.2 mg/dl (0-0.2) Aspartate Amino Transf (AST/SGOT) 14 U/L (15-37) Alanine Aminotransferase (ALT/SGPT) 25 U/L (12-78) Alkaline Phosphatase 43 U/L (45-117) Total Protein 6.9 gm/dl (6.4-8.2) Albumin 2.9 gm/dl (3.4-5.0) Lipase 69 U/L (73-393) Laboratory results per my review. Medications Administered Medications (Trade) Dose Ordered Sig/Carolyn Route Start Time Stop Time Status Last Admin Dose Admin Sodium Chloride 1,000 ml @ 999 mls/hr Q1H1M STAT IV 04/28/17 17:33 04/28/17 18:33 DC 04/28/17 17:52 999 MLS/HR Ondansetron HCl (Zofran Inj) 4 mg NOW STAT IV 04/28/17 17:33 04/28/17 17:35 DC 04/28/17 17:52 4 MG Levofloxacin (Levaquin / D5W) 750 mg NOW STAT IV 04/28/17 17:33 04/28/17 17:35 DC 04/28/17 17:52 750 MG Al Hydroxide/Mg Hydroxide (Maalox Susp) 30 ml NOW STAT PO 04/28/17 18:16 04/28/17 18:17 DC 04/28/17 18:21 30 ML Sodium Chloride 1,000 ml @ 999 mls/hr Q1H1M STAT IV 04/28/17 18:43 04/28/17 19:43 DC 04/28/17 18:43 999 MLS/HR ED Course 172: The patient was evaluated in room A11B. A complete history and physical examination were performed. 173: Ordered Levofloxacin 750 mg IV, Zofran Inj 4 mg IV, NSS 1,000 ml @ 999 mls /hr IV 1816: Ordered Maalox Susp 30 ml PO 1843: Ordered NSS 1,000 ml @ 999 mls/hr IV 1918: Upon reevaluation, the patient is resting. I discussed results and treatment plan with her. She verbalizes agreement and understanding. I spoke with Dr. Gutierrez of the [facility]. The patient will be evaluated for further management and care. Medical Decision Differential diagnosis: Etiologies such as renal colic, appendicitis, diverticulitis, mesenteric ischemia, aortic pathology, infections, inflammatory bowel disease, PUD, biliary pathology, UTI, as well as others were entertained. Nursing notes reviewed. The patient is a 37-year-old female who presented to the emergency department for dysuria frequency and decreased urine output. The patient has a history of IgA nephropathy in the past but her creatinine has been normal recently. I discussed the patient's laboratory and radiographic studies with her. She was treated with IV fluids as well as IV antibiotics for presumed urinary tract infection. The patient was started on Macrobid by her primary care physician last week but was not improving her symptoms. The patient was found have a very elevated creatinine compared to her baseline. Because of this [facility] evaluate the patient in emergency department for further management and disposition. Medication Reconcilliation Current Medication List: was personally reviewed by me Blood Pressure Screening Patient's blood pressure: Normal blood pressure Blood pressure disposition: Did not require urgent referral Consults Time Called: 1914 Consulting Physician: Dr. Gutierrez - [facility] Returned Call: 1918 I discussed the patient's case with him. The patient will be evaluated for further management. Impression Primary Impression: Hematuria Additional Impressions: Cystitis QUYEN (acute kidney injury) Scribe Attestation The scribe's documentation has been prepared under my direction and personally reviewed by me in its entirety. I confirm that the note above accurately reflects all work, treatment, procedures, and medical decision making performed by me. Departure Information Dispostion Being Evaluated By Hospitalist Referrals Sunil Beard M.D. (PCP) Patient Instructions My [facility] Problem Qualifiers Primary Impression: Hematuria Hematuria type: unspecified type Qualified Codes: R31.9 - Hematuria, unspecified
[2017-04-28] MEDS ORDERED: POTA1CAP2 PO (17:38)
[2017-04-28 18:09] LABS: BASO % 0.1 %; BASO ABS # 0.01 K/uL (0-0.2); COMPLETE YES; EOS % 7.9 %; HEMATOCRIT 39.1 % (37-47); IG% 0.2 %; LYMPH % 8.4 %; LYMPH ABS # 1.04 K/uL (1.2-3.4); MEAN CELL VOLUME 88.9 fL (80-100); MEAN CORPUSCULAR HEMOGLOBIN 30.9 pg (25-34); MEAN CORPUSCULAR HGB CONC 34.8 g/dl (32-36); MEAN PLATELET VOLUME 11.3 fL (7.4-10.4); MONO % 6.8 %; NEUT % 76.6 %; PLATELET COUNT 238 K/uL (130-400); WHITE BLOOD COUNT 12.34 K/uL (4.8-10.8)
--- NOTE | 2017-04-28 18:15 | DIAGNOSTIC IMAGING REPORT ---
CT SCAN OF THE ABDOMEN AND PELVIS WITHOUT CONTRAST CLINICAL HISTORY: Flank pain. Urinary tract infection. COMPARISON STUDY: March 11, 2013 TECHNIQUE: CT scan of the abdomen and pelvis was performed from the lung bases to the proximal femurs. Images are reviewed in the axial, sagittal, and coronal planes. IV contrast was not administered for this examination. A dose lowering technique was utilized adhering to the principles of ALARA. CT DOSE: 758.66 mGy.cm FINDINGS: Lower chest: There are dependent bibasilar opacities, statistically atelectatic. Liver: The unenhanced liver is normal in size, contour, and attenuation. There is no intrahepatic biliary ductal dilatation. Gallbladder: Unremarkable. Spleen: Normal in size and attenuation. Pancreas: Unremarkable. Adrenal glands: Unremarkable. Kidneys: No renal, ureteral, or bladder calculi are visualized. Bowel: There are no transition zones to indicate bowel obstruction. The appendix appears surgically absent. There is no evidence of acute diverticulitis. Peritoneum: There is no intraperitoneal free air or abdominal ascites. Vasculature: The abdominal aorta is normal in course and caliber. Adenopathy: None. Pelvic viscera: There is mild prominence the right ovary which is likely normal for age. The uterus is surgically absent. Skeletal structures: No destructive osseous lesions are seen. IMPRESSION: 1. No evidence of bowel obstruction. No evidence of free air 2. No renal, ureteral, or bladder calculi identified 3. Surgically absent appendix. No evidence of acute diverticulitis. Electronically signed by: Curly Mora M.D. 04/28/2017 6:14 PM Dictated Date/Time: 04/28/2017 6:09 PM
[2017-04-28] MEDS ORDERED: ALUMINUM/MAGNESIUM SUSP 30 ML UDC PO STA (18:16)
[2017-04-28 18:27] LABS: BUN/CREATININE RATIO 8.8 (10-20); CALCIUM 9.5 mg/dl (8.5-10.1); CREATININE 2.9 mg/dl (0.60-1.20); POTASSIUM 3.1 mmol/L (3.5-5.1)
[2017-04-28 18:55] LABS: URINE APPEARANCE CLOUDY (CLEAR); URINE BILIRUBIN NEG (NEG); URINE COLOR YELLOW; URINE EPITHELIAL CELL AUTO >30 /lpf (0-5); URINE NITRITE NEG (NEG); UROBILINOGEN NEG (NEG)
[2017-04-28 18:59] LABS: MANUAL MICROSCOPIC REQUIRED? NO; REVIEW REQ? YES
--- NOTE | 2017-04-28 19:44 | History and Physical ---
History & Physical Date & Time of Service: Apr 28, 2017 at 19:44 . Chief Complaint: fever, urinary urgency, flank pain . Primary Care Physician: Sunil Beard M.D. . History of Present Illness Source: patient, clinic records, hospital records 37 YO female followed by Dr. Beard for Family Medicine and Dr. Alvarado for Nephrology. History of IgA nephropathy and other problems noted below. Baseline creatinine 0.08 February 2017. 1 week prior to admission developed urinary frequency, dysuria, foul-smelling cloudy urine. Contacted clinic. Prescribed nitrofurantoin 04/25. Started prescription 04/26. That evening felt worse and noted a fever. Temp as high as 101. Subsequently developed bilateral flank pain. No gross hematuria. Notes decreased urine output- only voided once today before coming to ED. Experiencing nausea without emesis. No diarrhea. . Past Medical/Surgical History Chronic Medical Problems: (1) Endometriosis Status: Chronic (2) GERD (gastroesophageal reflux disease) Status: Chronic (3) Hx of symptomatic hypotension Status: Chronic (4) Hypokalemia Status: Chronic (5) IgA nephropathy Status: Chronic (8) VERONICA (obstructive sleep apnea) Permanent Comment: resolved with weight loss per patient; not on CPAP Status: Chronic (9) PCOS (polycystic ovarian syndrome) Status: Chronic (10) Psoriasis Status: Chronic (11) Sinus tachycardia Status: Chronic Surgical Problems: (1) H/O cystoscopy Status: Chronic (2) History of dental surgery Status: Chronic (3) History of hysterectomy Status: Chronic (4) S/P appendectomy Status: Chronic (5) S/P tonsillectomy Status: Chronic . Family History MOTHER Pulmonary embolism GRANDFATHER Sudden cardiac GRANDMOTHER Uterine cancer Social History Smoking Status: Former Smoker Alcohol Use: none Drug Use: none Marital Status: Occupational Status: employed Allergies Coded Allergies: Iodine (Verified Allergy, Mild, HIVES, 12/10/16) Penicillins (Verified Allergy, Mild, HIVES, 12/10/16) Shellfish (Verified Allergy, Mild, HIVES, 12/10/16) Home Medications Scheduled Allopurinol (Allopurinol), 300 MG PO QAM Atenolol (Tenormin), 25 MG PO BID Hydrochlorothiazide (Hctz), 25 MG PO QAM Nitrofurantoin Monohyd Macrocr (Macrobid), 100 MG PO BID [place]-3 Fatty Acids (Fish Oil), 1,000 UNITS PO TIDM Potassium Chloride Microencaps (Potassium Chloride Er), 20 MEQ PO DAILY Scheduled PRN Fluticasone Propionate (Nasal) (Flonase Allergy Relief), 2 SPRAYS BENNIE DAILY PRN for ALLERGIC REACTION Ondansetron Hcl (Zofran), 8 MG PO Q8 PRN for Nausea Triamcinolone Acet (Aristocort 0.1%), 1 APPLN EXT BID PRN for rash Review of Systems Constitutional: + fever, + weight loss (intentional) Eyes: No worsening of vision, No diplopia ENT: + nasal symptoms, No sore throat Respiratory: No cough, No shortness of breath Cardiovascular: + edema (mild, chronic), + palpitations, No chest pain Abdomen: + nausea, No pain, No vomiting, No diarrhea, No GI bleeding Musculoskeletal: No joint pain, No muscle pain Genitourinary - Female: + problem reported (as noted in HPI) Neurologic: + problem reported (no headaches) Endocrine: No excessive thirst, No excessive urination Hematologic / Lymphatic: No abnormal bleeding/bruising, No swollen lymph nodes Integumentary: No rash, No new/changing skin lesions Allergic / Immunologic: + environmental allergies Physical Exam Vital Signs Date Time Temp Pulse Resp B/P (MAP) Pulse Ox O2 Delivery O2 Flow Rate FiO2 04/28/17 18:51 96 18 126/86 100 Room Air 04/28/17 18:24 88 04/28/17 17:58 86 19 110/67 99 Room Air 04/28/17 16:55 37.0 90 20 107/74 99 Room Air General Appearance: WD/WN, no apparent distress Head: normocephalic, atraumatic Eyes: normal inspection, PERRL, EOMI, sclerae normal (conjunctivae pink) ENT: hearing grossly normal, pharynx normal Neck: supple, no adenopathy, thyroid normal, trachea midline Respiratory/Chest: lungs clear, no respiratory distress, no accessory muscle use Cardiovascular: regular rate, rhythm, no edema, no gallop, no JVD, no murmur Abdomen/GI: normal bowel sounds, non tender, soft, no organomegaly, no pulsatile mass Back: + left CVA tenderness, + right CVA tenderness Extremities/Musculoskelatal: normal inspection, no calf tenderness Neurologic/Psych: alert, normal mood/affect, oriented x 3 Skin: normal color, warm/dry, no rash Lymphatic: no adenopathy (cervical) Diagnostics Laboratory Results Results Past 24 Hours Test 04/28/17 17:43 04/28/17 17:50 Range/Units Urine Color YELLOW Urine Appearance CLOUDY CLEAR Urine pH 5.0 4.5-7.5 Urine Specific [place] 1.020 1.000-1.030 Urine Protein 2+ NEG Urine Glucose (UA) NEG NEG Urine Ketones NEG NEG Urine Occult Blood 3+ NEG Urine Nitrite NEG NEG Urine Bilirubin NEG NEG Urine Urobilinogen NEG NEG Urine Leukocyte Esterase SMALL NEG Urine WBC (Auto) 10-30 0-5 /hpf Urine RBC (Auto) >30 0-4 /hpf Urine Hyaline Casts (Auto) 1-5 0-5 /lpf Urine Epithelial Cells (Auto) >30 0-5 /lpf Urine Bacteria (Auto) 3+ NEG Urine Pathogenic Casts 10-20 GRANULAR CASTS 0 /lpf Urine Yeast (Auto) BUDDING NONE PRSENT White Blood Count 12.34 4.8-10.8 K/uL Red Blood Count 4.40 4.2-5.4 M/uL Hemoglobin 13.6 12.0-16.0 g/dL Hematocrit 39.1 37-47 % Mean Corpuscular Volume 88.9 80-100 fL Mean Corpuscular Hemoglobin 30.9 25-34 pg Mean Corpuscular Hemoglobin Concent 34.8 32-36 g/dl Platelet Count 238 130-400 K/uL Mean Platelet Volume 11.3 7.4-10.4 fL Neutrophils (%) (Auto) 76.6 % Lymphocytes (%) (Auto) 8.4 % Monocytes (%) (Auto) 6.8 % Eosinophils (%) (Auto) 7.9 % Basophils (%) (Auto) 0.1 % Neutrophils # (Auto) 9.45 1.4-6.5 K/uL Lymphocytes # (Auto) 1.04 1.2-3.4 K/uL Monocytes # (Auto) 0.84 0.11-0.59 K/uL Eosinophils # (Auto) 0.97 0-0.5 K/uL Basophils # (Auto) 0.01 0-0.2 K/uL RDW Standard Deviation 40.9 36.4-46.3 fL RDW Coefficient of Variation 12.7 11.5-14.5 % Immature Granulocyte % (Auto) 0.2 % Immature Granulocyte # (Auto) 0.03 0.00-0.02 K/uL Sodium Level 135 136-145 mmol/L Potassium Level 3.1 3.5-5.1 mmol/L Chloride Level 99 98-107 mmol/L Carbon Dioxide Level 24 21-32 mmol/L Anion Gap 12.0 3-11 mmol/L Blood Urea Nitrogen 25 7-18 mg/dl Creatinine 2.90 0.60-1.20 mg/dl Est Creatinine Clear Calc Drug Dose 0.8 ml/min Estimated GFR () 23.2 Estimated GFR (Non- 20.0 BUN/Creatinine Ratio 8.8 10-20 Random Glucose 82 70-99 mg/dl Calcium Level 9.5 8.5-10.1 mg/dl Total Bilirubin 0.9 0.2-1 mg/dl Direct Bilirubin 0.2 0-0.2 mg/dl Aspartate Amino Transf (AST/SGOT) 14 15-37 U/L Alanine Aminotransferase (ALT/SGPT) 25 12-78 U/L Alkaline Phosphatase 43 45-117 U/L Total Protein 6.9 6.4-8.2 gm/dl Albumin 2.9 3.4-5.0 gm/dl Lipase 69 73-393 U/L Microbiology Results 04/28/17 Urine Culture, Received Pending Diagnostic Radiology CT SCAN OF THE ABDOMEN AND PELVIS WITHOUT CONTRAST Lower chest: There are dependent bibasilar opacities, statistically atelectatic. Liver: The unenhanced liver is normal in size, contour, and attenuation. There is no intrahepatic biliary ductal dilatation. Gallbladder: Unremarkable. Spleen: Normal in size and attenuation. Pancreas: Unremarkable. Adrenal glands: Unremarkable. Kidneys: No renal, ureteral, or bladder calculi are visualized. Bowel: There are no transition zones to indicate bowel obstruction. The appendix appears surgically absent. There is no evidence of acute diverticulitis. Peritoneum: There is no intraperitoneal free air or abdominal ascites. Vasculature: The abdominal aorta is normal in course and caliber. Adenopathy: None. Pelvic viscera: There is mild prominence the right ovary which is likely normal for age. The uterus is surgically absent. Skeletal structures: No destructive osseous lesions are seen. IMPRESSION: 1. No evidence of bowel obstruction. No evidence of free air 2. No renal, ureteral, or bladder calculi identified 3. Surgically absent appendix. No evidence of acute diverticulitis. Electronically signed by: Curly Mora M.D. 04/28/2017 6:14 PM Dictated Date/Time: 04/28/2017 6:09 PM . Impression Assessment and Plan ACUTE KIDNEY DISEASE Underlying IgA nephropathy with baseline creatinine of 0.8. Creatinine now 2.9. Recent urgency and dysuria, treated with nitrofurantoin. No ureteral calculi / obstruction per CT. UA shows WBC's, RBC's, hyaline casts, granular casts. ? prerenal azotemia. ? ATN ? other pathology. IV fluids initiated in ED and will be continued. Check FE Na. Hold HCTZ. Stop nitrofurantoin. Consult Nephrology. SUSPECTED UTI Urgency and dysuria followed by flank pain and fever. Treated empirically with nitrofurantoin without improvement. UA now shows WBC's, bacteria, budding yeast, hyaline casts, granular casts. Urine culture obtained in ED and patient started on levofloxacin. HYPOKALEMIA Chronic hypokalemia on HCTZ. Serum K now 3.1. IV replacement. Follow. SINUS TACHYCARDIA Continue atenolol. VTE PROPHYLAXIS Moderate risk. No anticoagulants in light of hematuria. SCD's. Ambulate. DISPOSITION Admit to Med-Surg Unit. Family Medicine follow-up with Dr. Beard. Nephrology follow-up with Dr. Alvarado. . VTE Prophylaxis VTE Risk Assessment Done? Y/N: Yes Risk Level: Moderate Given or contraindicated: SCD's
[2017-04-28] MEDS ORDERED: POTA20TA13 PO (20:31)
[2017-04-28] MEDS ORDERED: NITR-5 PO (20:32)
[2017-04-28] MEDS ORDERED: LEVOFLOXACIN CONSULT ACTIVE PRN (21:30)
[2017-04-28 21:36] VITALS: BP 100/66; PULSE 88; TEMP 37.2; O2SAT 99; Ht 157.5 cm; Wt 92.5 kg
[2017-04-28] MEDS: TRAMADOL HCL 50 MG TAB PO PRN (21:40)
[2017-04-28] MEDS: POTASSIUM CHLORIDE INJ 40 MEQ in SODIUM CHLORIDE 0.9% 1000ML 1,000 ML IV SCH (22:26)
[2017-04-28 23:45] VITALS: BP 85/42; PULSE 91; TEMP 37.2; O2SAT 94
[2017-04-29] MEDS: POTASSIUM CHLORIDE INJ 40 MEQ in SODIUM CHLORIDE 0.9% 1000ML 1,000 ML IV SCH ×3 (04:48→19:00)
[2017-04-29 05:20] VITALS: BP 92/55; PULSE 84; TEMP 37; O2SAT 95
[2017-04-29] MEDS: TRAMADOL HCL 50 MG TAB PO PRN ×2 (07:25→16:07)
--- NOTE | 2017-04-29 07:37 | NEPHROLOGY CONSULTATION ---
DATE OF CONSULTATION: 04/29/2017 ATTENDING OF RECORD: Dr. Hilton. REASON FOR CONSULTATION: QUYEN. HISTORY OF PRESENT ILLNESS: This is a 37-year-old female seen by me for the first time in January of this year with history of IgA nephropathy. The patient was previously being followed by my partner Dr. Mosley in [address] Rios in 2016. The patient has IgA nephropathy, biopsy proven, not treated with steroids. She did undergo prophylactic tonsillectomy. No history of NSAIDs. No tobacco, no diabetes. The patient did have a previous admission to [facility] for QUYEN and low potassium and also with a history of elevated uric acid, on allopurinol, no actual gout symptoms. The patient started to have urinary tract infection symptoms, started to have bilateral flank pain, darker urine, fevers, decreased appetite, nausea, was treated approximately with nitrofurantoin. Symptoms persisted and the patient came into the hospital with a creatinine of 2.9 with a previous baseline of under 1 and low potassium of 3.1. White count elevated at 12,000. UA with small leukocyte esterase, 10-30 WBCs, greater than 30 RBCs. Urine culture pending. The patient currently on Levaquin 750 mg IV q. 48 hours and started on normal saline with 40 of potassium at 150 mL an hour. The patient also received 2 liters of fluid in the Emergency Room, although put out 600 mL of urine but not urinating a lot in relation to the amount of fluids she received. PAST MEDICAL HISTORY: IgA nephropathy, polycystic ovarian syndrome, obstructive sleep apnea, CKD stage II, obesity, chronic hypokalemia, endometriosis. PAST SURGICAL HISTORY: Renal biopsy, hysterectomy, tonsillectomy, appendectomy. FAMILY HISTORY: Significant for thyroid disease. Mother with blood clot. Grandmother with uterine cancer. SOCIAL HISTORY: . Is a [employer]ER at [employer]. Former smoker, social alcohol, no drugs. REVIEW OF SYSTEMS: Positive fatigue. Positive fevers. HEAD: History of migraines. NECK: No recent swelling in the thyroid area. RESPIRATORY: No shortness of breath. CARDIAC: No chest pain and no edema. GASTROINTESTINAL: Positive nausea. No vomiting. URINARY: No nocturia, no dysuria. Dark urine, but no obvious microscopic blood. MUSCULOSKELETAL: No joint pain or arthritis. NEUROLOGICAL: No seizures. No tremors. SKIN: No rash or itching. CURRENT MEDICATIONS: Levaquin 750 mg IV q. 48, normal saline with 40 of potassium at 150 an hour, atenolol 25 mg p.o. b.i.d. PHYSICAL EXAMINATION VITAL SIGNS: Temperature 37, pulse 84, respiratory rate 18, blood pressure 92/55, satting 95% on room air. GENERAL: Awake, alert, oriented x3. EYES: No scleral icterus. ENT: Moist mucous membranes. NECK: Supple. PULMONARY: Clear to auscultation. CARDIAC: Regular rate and rhythm. ABDOMEN: Bowel sounds positive, soft, nontender. BACK: Bilateral flank tenderness. EXTREMITIES: No clubbing, cyanosis or edema. NEUROLOGICAL: Nonfocal. DERMATOLOGIC: No rash or ulcers noted. LABORATORY DATA: White count on admission was 12, H&H 13 and 39, platelet count 238. Sodium 135, potassium 3.1, chloride is 99, bicarbonate is 24, BUN is 25, creatinine is 2.9, glucose 82, calcium is 9.5, albumin is 2.9. Urine random sodium is 71. UA shows a pH of 5, specific gravity 1.020, 2+ protein, 3+ blood, small leukocyte esterase, 10-30 WBCs, greater than 30 RBCs. Urine culture is pending. Abdominal pelvis CT without contrast showed no stones visualized. ASSESSMENT AND PLAN: 1. Acute kidney injury, nonoliguric. Baseline creatinine of 0.8-1 with about a gram of proteinuria and no blood in the urine at last check. Presents with a creatinine of 2.9 in the setting of volume depletion and possible pyelonephritis. Currently on IV Levaquin and receiving aggressive IV fluids. Would continue the current treatment and await labs for this morning. If creatinine is improving, then the patient had an element of volume depletion. If her creatinine continues to worsen, likely had an acute tubular necrosis episode from the infection/volume depletion and creatinine may take several days before starting to improve. Would continue the current course either way. Does not appear to have an acute IgA nephropathy GN pattern. This is not the classic presentation for it. I feel the more likely scenario is urinary tract infection with volume depletion plus or minus acute tubular necrosis. For now, continue current therapy. The patient is comfortable, at bedside. Tolerating the fluids well. 2. Hypokalemia. The patient is known to have low potassiums, requiring potassium supplementation as an outpatient. Her potassium level was low on admission and likely will need repletion during the hospitalization. We will continue to follow the magnesium and potassium levels periodically. I appreciate the consultation. LIAM
[2017-04-29 08:01] VITALS: BP 105/69; PULSE 76; TEMP 36.9; O2SAT 97
[2017-04-29 08:37] LABS: HEMATOCRIT 33.7 % (37-47); MEAN CELL VOLUME 89.9 fL (80-100); MEAN CORPUSCULAR HEMOGLOBIN 31.2 pg (25-34); MEAN CORPUSCULAR HGB CONC 34.7 g/dl (32-36); MEAN PLATELET VOLUME 11.3 fL (7.4-10.4); PLATELET COUNT 200 K/uL (130-400); RED BLOOD COUNT 3.75 M/uL (4.2-5.4); WHITE BLOOD COUNT 8.38 K/uL (4.8-10.8)
[2017-04-29 09:26] LABS: BUN/CREATININE RATIO 12.1 (10-20); CALCIUM 7.9 mg/dl (8.5-10.1); CREATININE 2.3 mg/dl (0.60-1.20); MAGNESIUM 1.9 mg/dl (1.8-2.4); POTASSIUM 3.6 mmol/L (3.5-5.1)
[2017-04-29 09:40] VITALS: BP 115/78; PULSE 83
[2017-04-29 15:28] VITALS: BP 93/61; PULSE 72; TEMP 37.1; O2SAT 98
--- NOTE | 2017-04-29 16:13 | Progress Note ---
Internal Med Progress Note Date of Service: Apr 29, 2017. Provider Documentation: SUBJECTIVE: The patient was seen and examined Complains of bilateral flunk and back pain Has nausea but no vomiting OBJECTIVE: Vital Signs-as noted below Exam: General-No distress at rest Eyes-Normal ENT-normal Neck-Supple Lungs-Clear to ausucltate bilaterally Heart-Regular,no murmur appreciated Abdomen-Benign,Bildly tender bilateral renal angles,no masses,bowel sound present Extremities-No edema Neuro-AAOx3 Lab data as noted below. ASSESSMENT & PLAN: ACUTE KIDNEY INJURY -Underlying IgA nephropathy with baseline creatinine of 0.8. -CT scan did not show any stone disease -Creatinine went up to 2.9. -Recent urgency and dysuria, treated with nitrofurantoin. -No ureteral calculi / obstruction per CT. -IV fluids initiated in ED and will be continued.. -Urine Random Sodium 71 -Appreciate Nephrology input . SUSPECTED UTI-Partially treated Urgency and dysuria followed by flank pain and fever. Treated empirically with nitrofurantoin without improvement. UA now shows WBC's, bacteria, budding yeast, hyaline casts, granular casts- suggestive of Infection. Culture might be negative in light of receiving antibiotic Started on Levofloxacin in ER and will continue HYPOKALEMIA Chronic hypokalemia on HCTZ. Serum K now 3.1. IV replacement. Will need to start maintenance dose of Potassium SINUS TACHYCARDIA Likely secondary to Infection,Anxiety Continue atenolol. Rate is down VTE PROPHYLAXIS Moderate risk. No anticoagulants in light of hematuria. SCD's. Ambulate. DISPOSITION Admit to Med-Surg Unit. Family Medicine follow-up with Dr. Beard. Nephrology follow-up with Dr. Alvarado. Vital Signs: Date Time Temp Pulse Resp B/P (MAP) Pulse Ox O2 Delivery O2 Flow Rate FiO2 04/29/17 15:28 37.1 72 16 93/61 (72) 98 04/29/17 09:40 83 115/78 (90) 04/29/17 08:01 36.9 76 16 105/69 (81) 97 04/29/17 07:46 Room Air 04/29/17 05:20 37.0 84 18 92/55 (67) 95 Room Air 04/28/17 23:45 37.2 91 18 85/42 (56) 94 Room Air 04/28/17 21:36 37.2 88 20 100/66 99 Room Air 04/28/17 20:24 87 18 118/73 99 Room Air 04/28/17 18:51 96 18 126/86 100 Room Air 04/28/17 18:24 88 04/28/17 17:58 86 19 110/67 99 Room Air 04/28/17 16:55 37.0 90 20 107/74 99 Room Air Lab Results: Results Past 24 Hours Test 04/28/17 17:43 04/28/17 17:50 04/29/17 00:00 04/29/17 08:23 Range/Units Urine Color YELLOW Urine Appearance CLOUDY CLEAR Urine pH 5.0 4.5-7.5 Urine Specific [place] 1.020 1.000-1.030 Urine Protein 2+ NEG Urine Glucose (UA) NEG NEG Urine Ketones NEG NEG Urine Occult Blood 3+ NEG Urine Nitrite NEG NEG Urine Bilirubin NEG NEG Urine Urobilinogen NEG NEG Urine Leukocyte Esterase SMALL NEG Urine WBC (Auto) 10-30 0-5 /hpf Urine RBC (Auto) >30 0-4 /hpf Urine Hyaline Casts (Auto) 1-5 0-5 /lpf Urine Epithelial Cells (Auto) >30 0-5 /lpf Urine Bacteria (Auto) 3+ NEG Urine Pathogenic Casts 10-20 GRANULAR CASTS 0 /lpf Urine Yeast (Auto) BUDDING NONE PRSENT White Blood Count 12.34 8.38 4.8-10.8 K/uL Red Blood Count 4.40 3.75 4.2-5.4 M/uL Hemoglobin 13.6 11.7 12.0-16.0 g/dL Hematocrit 39.1 33.7 37-47 % Mean Corpuscular Volume 88.9 89.9 80-100 fL Mean Corpuscular Hemoglobin 30.9 31.2 25-34 pg Mean Corpuscular Hemoglobin Concent 34.8 34.7 32-36 g/dl Platelet Count 238 200 130-400 K/uL Mean Platelet Volume 11.3 11.3 7.4-10.4 fL Neutrophils (%) (Auto) 76.6 % Lymphocytes (%) (Auto) 8.4 % Monocytes (%) (Auto) 6.8 % Eosinophils (%) (Auto) 7.9 % Basophils (%) (Auto) 0.1 % Neutrophils # (Auto) 9.45 1.4-6.5 K/uL Lymphocytes # (Auto) 1.04 1.2-3.4 K/uL Monocytes # (Auto) 0.84 0.11-0.59 K/uL Eosinophils # (Auto) 0.97 0-0.5 K/uL Basophils # (Auto) 0.01 0-0.2 K/uL RDW Standard Deviation 40.9 42.0 36.4-46.3 fL RDW Coefficient of Variation 12.7 13.0 11.5-14.5 % Immature Granulocyte % (Auto) 0.2 % Immature Granulocyte # (Auto) 0.03 0.00-0.02 K/uL Sodium Level 135 142 136-145 mmol/L Potassium Level 3.1 3.6 3.5-5.1 mmol/L Chloride Level 99 111 98-107 mmol/L Carbon Dioxide Level 24 22 21-32 mmol/L Anion Gap 12.0 9.0 3-11 mmol/L Blood Urea Nitrogen 25 28 7-18 mg/dl Creatinine 2.90 2.30 0.60-1.20 mg/dl Est Creatinine Clear Calc Drug Dose 0.8 35.8 ml/min Estimated GFR () 23.2 30.7 Estimated GFR (Non- 20.0 26.5 BUN/Creatinine Ratio 8.8 12.1 10-20 Random Glucose 82 110 70-99 mg/dl Calcium Level 9.5 7.9 8.5-10.1 mg/dl Total Bilirubin 0.9 0.2-1 mg/dl Direct Bilirubin 0.2 0-0.2 mg/dl Aspartate Amino Transf (AST/SGOT) 14 15-37 U/L Alanine Aminotransferase (ALT/SGPT) 25 12-78 U/L Alkaline Phosphatase 43 45-117 U/L Total Protein 6.9 6.4-8.2 gm/dl Albumin 2.9 3.4-5.0 gm/dl Lipase 69 73-393 U/L Urine Random Creatinine 81.0 mg/dl Urine Random Sodium 71 mEq/L Magnesium Level 1.9 1.8-2.4 mg/dl Microbiology Results 04/28/17 Urine Culture - Preliminary, Resulted NO GROWTH - LESS THAN 1,000 COLONIES/...
[2017-04-29 20:51] VITALS: BP 94/63
[2017-04-29 23:45] VITALS: BP 100/64; PULSE 81; TEMP 37; O2SAT 95
[2017-04-30] MEDS: POTASSIUM CHLORIDE INJ 40 MEQ in SODIUM CHLORIDE 0.9% 1000ML 1,000 ML IV SCH ×2 (00:09→08:41)
[2017-04-30] MEDS: TRAMADOL HCL 50 MG TAB PO PRN ×2 (05:07→17:56)
--- NOTE | 2017-04-30 07:13 | Nephrology Progress Note ---
Nephrology Progress Note Date of Service: Apr 30, 2017. Subjective 37 yo female seen for follow up of QUYEN and UTI. urine cultures are negative. tolerating iv fluids well. creatinine improving. pt though continues to have cloudy urine and significant back pain and feels her bladder is spasming. pt with nausea from the pain meds. Objective Date Time Temp Pulse Resp B/P (MAP) Pulse Ox O2 Delivery O2 Flow Rate FiO2 04/30/17 00:00 Room Air 04/29/17 23:45 37.0 81 16 100/64 (76) 95 Room Air 04/29/17 20:51 94/63 (73) 04/29/17 20:30 Room Air 04/29/17 16:00 Room Air 04/29/17 15:28 37.1 72 16 93/61 (72) 98 04/29/17 09:40 83 115/78 (90) 04/29/17 08:01 36.9 76 16 105/69 (81) 97 04/29/17 07:46 Room Air Physical Exam: General-aaox3 Eyes-no scleral icterus ENT-mmm Neck-supple Lungs-cta Heart-rrr Abdomen-bs+ s/nt/nd Extremities-no c/c/e Neuro-nonfocal Current Inpatient Medications Medications (Trade) Dose Ordered Sig/Carolyn Route Start Time Stop Time Status Last Admin Dose Admin Atenolol (Tenormin Tab) 25 mg BID PO 04/28/17 21:00 05/28/17 20:59 04/29/17 09:41 25 MG Potassium Chloride 40 meq/ Sodium Chloride 1,020 ml @ 150 mls/hr [id number] IV 04/28/17 21:45 05/28/17 21:44 04/30/17 00:09 150 MLS/HR Tramadol HCl (Ultram Tab) 50 mg Q4H PRN PO 04/28/17 21:15 05/28/17 21:14 04/30/17 05:07 50 MG Levofloxacin 750 mg/Prmx 150 ml @ 100 mls/hr Q48H IV 04/30/17 18:00 05/10/17 17:59 Levofloxacin (Consult) 1 ea UD PRN N/A 04/28/17 21:30 05/28/17 21:29 Last 24 Hours Test 04/29/17 08:23 04/30/17 04:44 White Blood Count 8.38 K/uL Red Blood Count 3.75 M/uL Hemoglobin 11.7 g/dL Hematocrit 33.7 % Mean Corpuscular Volume 89.9 fL Mean Corpuscular Hemoglobin 31.2 pg Mean Corpuscular Hemoglobin Concent 34.7 g/dl RDW Standard Deviation 42.0 fL RDW Coefficient of Variation 13.0 % Platelet Count 200 K/uL Mean Platelet Volume 11.3 fL Sodium Level 142 mmol/L Potassium Level 3.6 mmol/L Chloride Level 111 mmol/L Carbon Dioxide Level 22 mmol/L Anion Gap 9.0 mmol/L Blood Urea Nitrogen 28 mg/dl Creatinine 2.30 mg/dl Est Creatinine Clear Calc Drug Dose 35.8 ml/min Estimated GFR () 30.7 Estimated GFR (Non- 26.5 BUN/Creatinine Ratio 12.1 Random Glucose 110 mg/dl Calcium Level 7.9 mg/dl Magnesium Level 1.9 mg/dl Assessment & Plan [id number] setting of uti-urine culture not confirmed. treated symptomatically as an outpt with nitrofurantoin and then switched to iv levaquin while in house. cultures in hospital were negative however in setting of getting oral antibiotics for several days prior to coming in. creatinine improving. continue iv fluids-tolerating them well. pt unfortunately still having significant back pain and bladder spasms and cloudy urine. continue current course of treatment and hopefully symptoms will start to improve. will follow labs. pt wiht underlying IGA nephropathy with about a gram of proteinuria at baseline.
[2017-04-30 07:40] VITALS: BP 98/62; PULSE 76; TEMP 37.1; O2SAT 97
[2017-04-30 07:57] LABS: HEMATOCRIT 32.6 % (37-47); MEAN CELL VOLUME 90.1 fL (80-100); MEAN CORPUSCULAR HEMOGLOBIN 31.8 pg (25-34); MEAN CORPUSCULAR HGB CONC 35.3 g/dl (32-36); MEAN PLATELET VOLUME 11.4 fL (7.4-10.4); PLATELET COUNT 203 K/uL (130-400); RED BLOOD COUNT 3.62 M/uL (4.2-5.4); WHITE BLOOD COUNT 7.61 K/uL (4.8-10.8)
[2017-04-30 08:32] LABS: BUN/CREATININE RATIO 14.1 (10-20); CALCIUM 7.9 mg/dl (8.5-10.1); CREATININE 1.7 mg/dl (0.60-1.20); MAGNESIUM 1.8 mg/dl (1.8-2.4); PHOSPHORUS 1.9 mg/dl (2.5-4.9); POTASSIUM 4.3 mmol/L (3.5-5.1)
[2017-04-30] MEDS: SODIUM CHLORIDE 0.9% 1000ML 1,000 ML IV SCH ×2 (14:50→23:32)
[2017-04-30 15:32] VITALS: BP 98/60; PULSE 79; TEMP 37; O2SAT 97
[2017-04-30] MEDS ORDERED: LEVOFLOXACIN / D5W 750 MG in PREMIXED IN D5W 150 ML IV SCH (18:00)
--- NOTE | 2017-04-30 18:02 | Progress Note ---
Internal Med Progress Note Date of Service: Apr 30, 2017. Provider Documentation: SUBJECTIVE: The patient was seen and examined Complains of bilateral flunk and back pain Has nausea but no vomiting Pain is not much better Not yet ready to be discharged OBJECTIVE: Vital Signs-as noted below Exam: General-No distress at rest Eyes-Normal ENT-normal Neck-Supple Lungs-Clear to ausucltate bilaterally Heart-Regular,no murmur appreciated Abdomen-Benign,Mildly tender bilateral renal angles,no masses,bowel sound present Extremities-No edema Neuro-AAOx3 Lab data as noted below. ASSESSMENT & PLAN: ACUTE KIDNEY INJURY -Underlying IgA nephropathy with baseline creatinine of 0.8. -CT scan did not show any stone disease -Creatinine went up to 2.9. -Recent urgency and dysuria, treated with nitrofurantoin. -No ureteral calculi / obstruction per CT. -IV fluids initiated in ED and will be continued.. -Urine Random Sodium 71 -Appreciate Nephrology input -.Renal function is getting better SUSPECTED UTI-Partially treated Urgency and dysuria followed by flank pain and fever. Treated empirically with nitrofurantoin without improvement. UA now shows WBC's, bacteria, budding yeast, hyaline casts, granular casts- suggestive of Infection. Culture might be negative in light of receiving antibiotic Started on Levofloxacin in ER and will continue Urine culture-multiple Sarah Will continue Levaquin for 5 days HYPOKALEMIA Chronic hypokalemia on HCTZ. Serum K now 3.1. IV replacement. Will need to start maintenance dose of Potassium SINUS TACHYCARDIA Likely secondary to Infection,Anxiety Continue atenolol. Rate is down VTE PROPHYLAXIS Moderate risk. No anticoagulants in light of hematuria. SCD's. Ambulate. DISPOSITION Admit to Med-Surg Unit. Family Medicine follow-up with Dr. Beard. Nephrology follow-up with Dr. Alvarado. Likely discharge tomorrow Vital Signs: Date Time Temp Pulse Resp B/P (MAP) Pulse Ox O2 Delivery O2 Flow Rate FiO2 04/30/17 16:00 Room Air 04/30/17 15:32 37.0 79 16 98/60 (73) 97 Room Air 04/30/17 08:45 Room Air 04/30/17 07:40 37.1 76 18 98/62 (74) 97 Room Air 04/30/17 00:00 Room Air 04/29/17 23:45 37.0 81 16 100/64 (76) 95 Room Air 04/29/17 20:51 94/63 (73) 04/29/17 20:30 Room Air Lab Results: Results Past 24 Hours Test 04/30/17 07:42 Range/Units White Blood Count 7.61 4.8-10.8 K/uL Red Blood Count 3.62 4.2-5.4 M/uL Hemoglobin 11.5 12.0-16.0 g/dL Hematocrit 32.6 37-47 % Mean Corpuscular Volume 90.1 80-100 fL Mean Corpuscular Hemoglobin 31.8 25-34 pg Mean Corpuscular Hemoglobin Concent 35.3 32-36 g/dl RDW Standard Deviation 43.5 36.4-46.3 fL RDW Coefficient of Variation 13.2 11.5-14.5 % Platelet Count 203 130-400 K/uL Mean Platelet Volume 11.4 7.4-10.4 fL Sodium Level 143 136-145 mmol/L Potassium Level 4.3 3.5-5.1 mmol/L Chloride Level 113 98-107 mmol/L Carbon Dioxide Level 22 21-32 mmol/L Anion Gap 8.0 3-11 mmol/L Blood Urea Nitrogen 24 7-18 mg/dl Creatinine 1.70 0.60-1.20 mg/dl Est Creatinine Clear Calc Drug Dose 48.4 ml/min Estimated GFR () 44.2 Estimated GFR (Non- 38.1 BUN/Creatinine Ratio 14.1 10-20 Random Glucose 89 70-99 mg/dl Calcium Level 7.9 8.5-10.1 mg/dl Phosphorus Level 1.9 2.5-4.9 mg/dl Magnesium Level 1.8 1.8-2.4 mg/dl
[2017-04-30 21:13] VITALS: BP 105/72; PULSE 88
[2017-04-30 23:20] VITALS: BP 91/59; PULSE 76; TEMP 37.1; O2SAT 97
[2017-05-01 06:08] LABS: BUN/CREATININE RATIO 16.6 (10-20); CALCIUM 7.6 mg/dl (8.5-10.1)
[2017-05-01 07:09] VITALS: BP 115/78; PULSE 76; TEMP 36.8; O2SAT 95
[2017-05-01] MEDS: SODIUM CHLORIDE 0.9% 1000ML 1,000 ML IV SCH (09:18)
--- NOTE | 2017-05-01 09:52 | Progress Note ---
Internal Med Progress Note Date of Service: May 01, 2017. Provider Documentation: SUBJECTIVE: The patient was seen and examined No more pain Feels much better Wants to go home today OBJECTIVE: Vital Signs-as noted below Exam: General-No distress at rest Eyes-Normal ENT-normal Neck-Supple Lungs-Clear to ausucltate bilaterally Heart-Regular,no murmur appreciated Abdomen-Benign,Mildly tender bilateral renal angles,no masses,bowel sound present No tenderness in Renal Angles Extremities-No edema Neuro-AAOx3 Lab data as noted below. ASSESSMENT & PLAN: ACUTE KIDNEY INJURY-Resolved -Underlying IgA nephropathy with baseline creatinine of 0.8. -CT scan did not show any stone disease -Creatinine went up to 2.9. -Recent urgency and dysuria, treated with nitrofurantoin. -No ureteral calculi / obstruction per CT. -IV fluids initiated in ED and will be continued.. -Urine Random Sodium 71 -Appreciate Nephrology input -.Renal function resolved SUSPECTED UTI-Partially treated Urgency and dysuria followed by flank pain and fever. Treated empirically with nitrofurantoin without improvement. UA now shows WBC's, bacteria, budding yeast, hyaline casts, granular casts- suggestive of Infection. Culture might be negative in light of receiving antibiotic Started on Levofloxacin in ER and will continue Urine culture-multiple Sarah Will continue Levaquin for 5 days in total HYPOKALEMIA Chronic hypokalemia on HCTZ. Serum K now 3.1. IV replacement. Will need to start maintenance dose of Potassium Resolved SINUS TACHYCARDIA Likely secondary to Infection,Anxiety Continue atenolol. Rate is down Normalized VTE PROPHYLAXIS Moderate risk. No anticoagulants in light of hematuria. SCD's. Ambulate. DISPOSITION Admit to Med-Surg Unit. Family Medicine follow-up with Dr. Beard. Nephrology follow-up with Dr. Alvarado. Likely discharge tomorrow Vital Signs: Date Time Temp Pulse Resp B/P (MAP) Pulse Ox O2 Delivery O2 Flow Rate FiO2 05/01/17 07:09 36.8 76 18 115/78 (90) 95 Room Air 05/01/17 00:20 Room Air 04/30/17 23:20 37.1 76 18 91/59 (70) 97 Room Air 04/30/17 21:13 88 105/72 (83) 04/30/17 16:00 Room Air 04/30/17 15:32 37.0 79 16 98/60 (73) 97 Room Air Lab Results: Results Past 24 Hours Test 05/01/17 05:13 Range/Units Sodium Level 145 136-145 mmol/L Potassium Level 4.0 3.5-5.1 mmol/L Chloride Level 115 98-107 mmol/L Carbon Dioxide Level 22 21-32 mmol/L Anion Gap 8.0 3-11 mmol/L Blood Urea Nitrogen 17 7-18 mg/dl Creatinine 1.00 0.60-1.20 mg/dl Est Creatinine Clear Calc Drug Dose 82.3 ml/min Estimated GFR () 83.9 Estimated GFR (Non- 72.4 BUN/Creatinine Ratio 16.6 10-20 Random Glucose 95 70-99 mg/dl Calcium Level 7.6 8.5-10.1 mg/dl
--- NOTE | 2017-05-01 10:18 | Nephrology Progress Note ---
Nephrology Progress Note Date of Service: May 01, 2017. Subjective no back pain currently; feels back pain is /has been at outpt baseline; no further bladder spasm; no n/v/dysuria/dyspnea Objective Date Time Temp Pulse Resp B/P (MAP) Pulse Ox O2 Delivery O2 Flow Rate FiO2 05/01/17 07:09 36.8 76 18 115/78 (90) 95 Room Air 05/01/17 00:20 Room Air 04/30/17 23:20 37.1 76 18 91/59 (70) 97 Room Air 04/30/17 21:13 88 105/72 (83) 04/30/17 16:00 Room Air 04/30/17 15:32 37.0 79 16 98/60 (73) 97 Room Air 04/30/17 08:45 Room Air Physical Exam: General-aaox3, on RA, maneuvers readily for exam Eyes-no scleral icterus, eomi ENT-mmm Neck-supple Lungs-cta Heart-rrr Abdomen-bs+ s/nt/nd Extremities-no c/c/e Neuro-juan, fluent speech Current Inpatient Medications Medications (Trade) Dose Ordered Sig/Carolyn Route Start Time Stop Time Status Last Admin Dose Admin Atenolol (Tenormin Tab) 25 mg BID PO 04/28/17 21:00 05/28/17 20:59 04/30/17 21:14 25 MG Tramadol HCl (Ultram Tab) 50 mg Q4H PRN PO 04/28/17 21:15 05/28/17 21:14 04/30/17 17:56 50 MG Levofloxacin 750 mg/Prmx 150 ml @ 100 mls/hr Q48H IV 04/30/17 18:00 05/10/17 17:59 04/30/17 17:56 100 MLS/HR Levofloxacin (Consult) 1 ea UD PRN N/A 04/28/17 21:30 05/28/17 21:29 Sodium Chloride 1,000 ml @ 100 mls/hr Q10H IV 04/30/17 12:45 05/30/17 12:44 04/30/17 23:32 100 MLS/HR Last 24 Hours Test 05/01/17 05:13 Sodium Level 145 mmol/L Potassium Level 4.0 mmol/L Chloride Level 115 mmol/L Carbon Dioxide Level 22 mmol/L Anion Gap 8.0 mmol/L Blood Urea Nitrogen 17 mg/dl Creatinine 1.00 mg/dl Est Creatinine Clear Calc Drug Dose 82.3 ml/min Estimated GFR () 83.9 Estimated GFR (Non- 72.4 BUN/Creatinine Ratio 16.6 Random Glucose 95 mg/dl Calcium Level 7.6 mg/dl Assessment & Plan 37 yo female seen for follow up of QUYEN and UTI. urine cultures are negative. tolerating iv fluids well; creatinine approaching prior baseline. pt though continues to have cloudy urine and significant back pain and feels her bladder is spasming. pt with nausea from the pain meds. [id number] setting of uti-urine culture not confirmed. -treated symptomatically as an outpt with nitrofurantoin and then switched to iv levaquin while in house. cultures in hospital were negative however in setting of getting oral antibiotics for several days prior to coming in. 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
[2017-05-01] MEDS ORDERED: LCTX PO (11:15)
[2017-05-01] MEDS ORDERED: LEVO1TAB35 PO (11:15)
--- NOTE | 2017-05-01 11:17 | Discharge Instructions ---
Discharge Instructions Date of Service May 01, 2017. Admission Reason for Admission: QUYEN Discharge Discharge Diagnosis / Problem: QUYEN,UTI Discharge Goals Goal(s): Prevent Disease Progression Activity Recommendations Activity Limitations: resume your previous activity . Instructions / Follow-Up Instructions / Follow-Up Dr Beard on 05/07/17 at 11:05 AM.Please keep appointment with Dr Alvarado Current Hospital Diet Patient's current hospital diet: AHA Diet (Heart Healthy) Discharge Diet Recommended Diet: Regular Diet Pending Studies Studies pending at discharge: no Medical Emergencies . Who to Call and When: Medical Emergencies: If at any time you feel your situation is an emergency, please call 911 immediately. . Non-Emergent Contact Non-Emergency issues call your: Primary Care Provider . Past History Medical & Surgical History: (1) IgA nephropathy (2) VERONICA (obstructive sleep apnea) (3) PCOS (polycystic ovarian syndrome) (4) Cystitis (5) QUYEN (acute kidney injury) (6) GERD (gastroesophageal reflux disease) (7) Endometriosis (8) S/P appendectomy (9) History of hysterectomy (10) H/O cystoscopy (11) History of dental surgery (12) S/P tonsillectomy . "Provider Documentation" section prepared by Darin Hilton. . VTE Core Measure Inpt VTE Proph given/why not?: SCD's
--- NOTE | 2017-05-01 11:29 | Discharge Summary ---
Discharge Summary Date of Service May 01, 2017. Discharge Summary Admission Date: Apr 28, 2017 at 19:44 Discharge Date: May 01, 2017 Discharge Disposition: Home Principal Diagnosis: QUYEN,UTI Secondary Diagnoses/Problems: Please see H&P and Hospital Progress note Consultations: Nephrology Medication Reconciliation New Medications: Lactobacillus Acidophilus (Lactinex) Tab 2 TAB PO BID, #20 TAB Levofloxacin (Levaquin) 750 Mg Tab 750 MG PO daily , #3 TAB Continued Medications: Allopurinol (Allopurinol) 300 Mg Tab 300 MG PO QAM Atenolol (Tenormin) 25 Mg Tab 25 MG PO BID, TAB Fluticasone Propionate (Nasal) (Flonase Allergy Relief) 50 Mcg/Act Spr 2 SPRAYS BENNIE DAILY PRN for ALLERGIC REACTION Hydrochlorothiazide (Hctz) 25 Mg Tab 25 MG PO QAM, TAB [place]-3 Fatty Acids (Fish Oil) 1,000 Mg Cap 1000 UNITS PO TIDM Ondansetron Hcl (Zofran) 8 Mg Tab 8 MG PO Q8 PRN for Nausea, TAB Potassium Chloride Microencaps (Potassium Chloride Er) 20 Meq Tab 20 MEQ PO DAILY Triamcinolone Acet (Aristocort 0.1%) 90 Appln/30 Gm Cr 1 APPLN EXT BID PRN for rash Discontinued Medications: Nitrofurantoin Monohyd Macrocr (Macrobid) 100 Mg Cap 100 MG PO BID, #14 CAP prescribed 04/25/17 Admission Information HPI (per Admitting provider): 37 YO female followed by Dr. Beard for Family Medicine and Dr. Alvarado for Nephrology. History of IgA nephropathy and other problems noted below. Baseline creatinine 0.08 February 2017. 1 week prior to admission developed urinary frequency, dysuria, foul-smelling cloudy urine. Contacted clinic. Prescribed nitrofurantoin 04/25. Started prescription 04/26. That evening felt worse and noted a fever. Temp as high as 101. Subsequently developed bilateral flank pain. No gross hematuria. Notes decreased urine output- only voided once today before coming to ED. Experiencing nausea without emesis. No diarrhea. Past Medical/Surgical History Chronic Medical Problems: (1) Endometriosis Status: Chronic (2) GERD (gastroesophageal reflux disease) Status: Chronic (3) Hx of symptomatic hypotension Status: Chronic (4) Hypokalemia Status: Chronic (5) IgA nephropathy Status: Chronic (8) VERONICA (obstructive sleep apnea) Permanent Comment: resolved with weight loss per patient; not on CPAP Status: Chronic (9) PCOS (polycystic ovarian syndrome) Status: Chronic (10) Psoriasis Status: Chronic (11) Sinus tachycardia Status: Chronic Surgical Problems: (1) H/O cystoscopy Status: Chronic (2) History of dental surgery Status: Chronic (3) History of hysterectomy Status: Chronic (4) S/P appendectomy Status: Chronic (5) S/P tonsillectomy Status: Chronic . Family History MOTHER Pulmonary embolism GRANDFATHER Sudden cardiac GRANDMOTHER Uterine cancer Social History Smoking Status: Former Smoker Alcohol Use: none Drug Use: none Marital Status: Occupational Status: employed Allergies Coded Allergies: Iodine (Verified Allergy, Mild, HIVES, 12/10/16) Penicillins (Verified Allergy, Mild, HIVES, 12/10/16) Shellfish (Verified Allergy, Mild, HIVES, 12/10/16) Home Medications Scheduled Allopurinol (Allopurinol), 300 MG PO QAM Atenolol (Tenormin), 25 MG PO BID Hydrochlorothiazide (Hctz), 25 MG PO QAM Nitrofurantoin Monohyd Macrocr (Macrobid), 100 MG PO BID [place]-3 Fatty Acids (Fish Oil), 1,000 UNITS PO TIDM Potassium Chloride Microencaps (Potassium Chloride Er), 20 MEQ PO DAILY Scheduled PRN Fluticasone Propionate (Nasal) (Flonase Allergy Relief), 2 SPRAYS BENNIE DAILY PRN for ALLERGIC REACTION Ondansetron Hcl (Zofran), 8 MG PO Q8 PRN for Nausea Triamcinolone Acet (Aristocort 0.1%), 1 APPLN EXT BID PRN for rash Review of Systems Constitutional: + fever, + weight loss (intentional) Eyes: No worsening of vision, No diplopia ENT: + nasal symptoms, No sore throat Respiratory: No cough, No shortness of breath Cardiovascular: + edema (mild, chronic), + palpitations, No chest pain Abdomen: + nausea, No pain, No vomiting, No diarrhea, No GI bleeding Musculoskeletal: No joint pain, No muscle pain Genitourinary - Female: + problem reported (as noted in HPI) Neurologic: + problem reported (no headaches) Endocrine: No excessive thirst, No excessive urination Hematologic / Lymphatic: No abnormal bleeding/bruising, No swollen lymph nodes Integumentary: No rash, No new/changing skin lesions Allergic / Immunologic: + environmental allergies Physical Ex - H&P Physical Exam Vital Signs Date Time Temp Pulse Resp B/P (MAP) Pulse Ox O2 Delivery O2 Flow Rate FiO2 04/28/17 18:51 96 18 126/86 100 Room Air 04/28/17 18:24 88 04/28/17 17:58 86 19 110/67 99 Room Air 04/28/17 16:55 37.0 90 20 107/74 99 Room Air General Appearance: WD/WN, no apparent distress Head: normocephalic, atraumatic Eyes: normal inspection, PERRL, EOMI, sclerae normal (conjunctivae pink) ENT: hearing grossly normal, pharynx normal Neck: supple, no adenopathy, thyroid normal, trachea midline Respiratory/Chest: lungs clear, no respiratory distress, no accessory muscle use Cardiovascular: regular rate, rhythm, no edema, no gallop, no JVD, no murmur Abdomen/GI: normal bowel sounds, non tender, soft, no organomegaly, no pulsatile mass Back: + left CVA tenderness, + right CVA tenderness Extremities/Musculoskelatal: normal inspection, no calf tenderness Neurologic/Psych: alert, normal mood/affect, oriented x 3 Skin: normal color, warm/dry, no rash Lymphatic: no adenopathy (cervical) Diagnostics - H&P Diagnostics Laboratory Results Results Past 24 Hours Test 04/28/17 17:43 04/28/17 17:50 Range/Units Urine Color YELLOW Urine Appearance CLOUDY CLEAR Urine pH 5.0 4.5-7.5 Urine Specific [place] 1.020 1.000-1.030 Urine Protein 2+ NEG Urine Glucose (UA) NEG NEG Urine Ketones NEG NEG Urine Occult Blood 3+ NEG Urine Nitrite NEG NEG Urine Bilirubin NEG NEG Urine Urobilinogen NEG NEG Urine Leukocyte Esterase SMALL NEG Urine WBC (Auto) 10-30 0-5 /hpf Urine RBC (Auto) >30 0-4 /hpf Urine Hyaline Casts (Auto) 1-5 0-5 /lpf Urine Epithelial Cells (Auto) >30 0-5 /lpf Urine Bacteria (Auto) 3+ NEG Urine Pathogenic Casts 10-20 GRANULAR CASTS 0 /lpf Urine Yeast (Auto) BUDDING NONE PRSENT White Blood Count 12.34 4.8-10.8 K/uL Red Blood Count 4.40 4.2-5.4 M/uL Hemoglobin 13.6 12.0-16.0 g/dL Hematocrit 39.1 37-47 % Mean Corpuscular Volume 88.9 80-100 fL Mean Corpuscular Hemoglobin 30.9 25-34 pg Mean Corpuscular Hemoglobin Concent 34.8 32-36 g/dl Platelet Count 238 130-400 K/uL Mean Platelet Volume 11.3 7.4-10.4 fL Neutrophils (%) (Auto) 76.6 % Lymphocytes (%) (Auto) 8.4 % Monocytes (%) (Auto) 6.8 % Eosinophils (%) (Auto) 7.9 % Basophils (%) (Auto) 0.1 % Neutrophils # (Auto) 9.45 1.4-6.5 K/uL Lymphocytes # (Auto) 1.04 1.2-3.4 K/uL Monocytes # (Auto) 0.84 0.11-0.59 K/uL Eosinophils # (Auto) 0.97 0-0.5 K/uL Basophils # (Auto) 0.01 0-0.2 K/uL RDW Standard Deviation 40.9 36.4-46.3 fL RDW Coefficient of Variation 12.7 11.5-14.5 % Immature Granulocyte % (Auto) 0.2 % Immature Granulocyte # (Auto) 0.03 0.00-0.02 K/uL Sodium Level 135 136-145 mmol/L Potassium Level 3.1 3.5-5.1 mmol/L Chloride Level 99 98-107 mmol/L Carbon Dioxide Level 24 21-32 mmol/L Anion Gap 12.0 3-11 mmol/L Blood Urea Nitrogen 25 7-18 mg/dl Creatinine 2.90 0.60-1.20 mg/dl Est Creatinine Clear Calc Drug Dose 0.8 ml/min Estimated GFR () 23.2 Estimated GFR (Non- 20.0 BUN/Creatinine Ratio 8.8 10-20 Random Glucose 82 70-99 mg/dl Calcium Level 9.5 8.5-10.1 mg/dl Total Bilirubin 0.9 0.2-1 mg/dl Direct Bilirubin 0.2 0-0.2 mg/dl Aspartate Amino Transf (AST/SGOT) 14 15-37 U/L Alanine Aminotransferase (ALT/SGPT) 25 12-78 U/L Alkaline Phosphatase 43 45-117 U/L Total Protein 6.9 6.4-8.2 gm/dl Albumin 2.9 3.4-5.0 gm/dl Lipase 69 73-393 U/L Microbiology Results 04/28/17 Urine Culture, Received Pending Diagnostic Radiology CT SCAN OF THE ABDOMEN AND PELVIS WITHOUT CONTRAST Lower chest: There are dependent bibasilar opacities, statistically atelectatic. Liver: The unenhanced liver is normal in size, contour, and attenuation. There is no intrahepatic biliary ductal dilatation. Gallbladder: Unremarkable. Spleen: Normal in size and attenuation. Pancreas: Unremarkable. Adrenal glands: Unremarkable. Kidneys: No renal, ureteral, or bladder calculi are visualized. Bowel: There are no transition zones to indicate bowel obstruction. The appendix appears surgically absent. There is no evidence of acute diverticulitis. Peritoneum: There is no intraperitoneal free air or abdominal ascites. Vasculature: The abdominal aorta is normal in course and caliber. Adenopathy: None. Pelvic viscera: There is mild prominence the right ovary which is likely normal for age. The uterus is surgically absent. Skeletal structures: No destructive osseous lesions are seen. IMPRESSION: 1. No evidence of bowel obstruction. No evidence of free air 2. No renal, ureteral, or bladder calculi identified 3. Surgically absent appendix. No evidence of acute diverticulitis. Electronically signed by: Curly Mora M.D. 04/28/2017 6:14 PM Dictated Date/Time: 04/28/2017 6:09 PM . Impression - H&P Impression Assessment and Plan ACUTE KIDNEY DISEASE Underlying IgA nephropathy with baseline creatinine of 0.8. Creatinine now 2.9. Recent urgency and dysuria, treated with nitrofurantoin. No ureteral calculi / obstruction per CT. UA shows WBC's, RBC's, hyaline casts, granular casts. ? prerenal azotemia. ? ATN ? other pathology. IV fluids initiated in ED and will be continued. Check FE Na. Hold HCTZ. Stop nitrofurantoin. Consult Nephrology. SUSPECTED UTI Urgency and dysuria followed by flank pain and fever. Treated empirically with nitrofurantoin without improvement. UA now shows WBC's, bacteria, budding yeast, hyaline casts, granular casts. Urine culture obtained in ED and patient started on levofloxacin. HYPOKALEMIA Chronic hypokalemia on HCTZ. Serum K now 3.1. IV replacement. Follow. SINUS TACHYCARDIA Continue atenolol. VTE PROPHYLAXIS Moderate risk. No anticoagulants in light of hematuria. SCD's. Ambulate. DISPOSITION Admit to Med-Surg Unit. Family Medicine follow-up with Dr. Beard. Nephrology follow-up with Dr. Alvarado. . VTE Prophylaxis VTE Risk Assessment Done? Y/N: Yes Risk Level: Moderate Given or contraindicated: SCD's . Physical Exam (per Admitting): General Appearance: WD/WN, no apparent distress Head: normocephalic, atraumatic Eyes: normal inspection, PERRL, EOMI, sclerae normal (conjunctivae pink) ENT: hearing grossly normal, pharynx normal Neck: supple, no adenopathy, thyroid normal, trachea midline Respiratory/Chest: lungs clear, no respiratory distress, no accessory muscle use Cardiovascular: regular rate, rhythm, no edema, no gallop, no JVD, no murmur Abdomen/GI: normal bowel sounds, non tender, soft, no organomegaly, no pulsatile mass Back: + left CVA tenderness, + right CVA tenderness Extremities/Musculoskelatal: normal inspection, no calf tenderness Neurologic/Psych: alert, normal mood/affect, oriented x 3 Skin: normal color, warm/dry, no rash Lymphatic: no adenopathy (cervical) Hospital Course ACUTE KIDNEY INJURY-Resolved -Underlying IgA nephropathy with baseline creatinine of 0.8. -CT scan did not show any stone disease -Creatinine went up to 2.9. -Recent urgency and dysuria, treated with nitrofurantoin. -No ureteral calculi / obstruction per CT. -IV fluids initiated in ED and will be continued.. -Urine Random Sodium 71 -Appreciate Nephrology input -.Renal function resolved SUSPECTED UTI-Partially treated Urgency and dysuria followed by flank pain and fever. Treated empirically with nitrofurantoin without improvement. UA now shows WBC's, bacteria, budding yeast, hyaline casts, granular casts- suggestive of Infection. Culture might be negative in light of receiving antibiotic Started on Levofloxacin in ER and will continue Urine culture-multiple Sarah Will continue Levaquin for 5 days in total HYPOKALEMIA Chronic hypokalemia on HCTZ. Serum K now 3.1. IV replacement. Will need to start maintenance dose of Potassium Resolved SINUS TACHYCARDIA Likely secondary to Infection,Anxiety Continue atenolol. Rate is down Normalized VTE PROPHYLAXIS Moderate risk. No anticoagulants in light of hematuria. SCD's. Ambulate. DISPOSITION Admit to Med-Surg Unit. Family Medicine follow-up with Dr. Beard. Nephrology follow-up with Dr. Alvarado. Likely discharge tomorrow Total time spent on discharge = 35 minutes This includes examination of the patient, discharge planning, medication reconciliation, and communication with other providers. Discharge Instructions Date of Service May 01, 2017. Admission Reason for Admission: QUYEN Discharge Discharge Diagnosis / Problem: QUYEN,UTI Discharge Goals Goal(s): Prevent Disease Progression Activity Recommendations Activity Limitations: resume your previous activity . Instructions / Follow-Up Instructions / Follow-Up Dr Beard on 05/07/17 at 11:05 AM.Please keep appointment with Dr Alvarado Current Hospital Diet Patient's current hospital diet: AHA Diet (Heart Healthy) Discharge Diet Recommended Diet: Regular Diet Pending Studies Studies pending at discharge: no Medical Emergencies . Who to Call and When: Medical Emergencies: If at any time you feel your situation is an emergency, please call 911 immediately. . Non-Emergent Contact Non-Emergency issues call your: Primary Care Provider . Past History Medical & Surgical History: (1) IgA nephropathy (2) VERONICA (obstructive sleep apnea) (3) PCOS (polycystic ovarian syndrome) (4) Cystitis (5) QUYEN (acute kidney injury) (6) GERD (gastroesophageal reflux disease) (7) Endometriosis (8) S/P appendectomy (9) History of hysterectomy (10) H/O cystoscopy (11) History of dental surgery (12) S/P tonsillectomy . "Provider Documentation" section prepared by Darin Hilton. . VTE Core Measure Inpt VTE Proph given/why not?: SCD's <Electronically signed by Darin Hilton M.D.> Signed: 05/01/17 [id number] Additional Copies To Sunil Beard M.D.
[2017-05-01 12:08] VITALS: BP 115/78; PULSE 76; TEMP 36.8; O2SAT 95
[2017-05-01] MEDS ORDERED: LEVOFLOXACIN / D5W 750 MG in PREMIXED IN D5W 150 ML IV SCH (18:00)
== END 2017-05-01 12:30 | disposition home or self-care (01) | DRG 683 ==
LOC: C.EDB 16:30 → C.MS2W 19:44 → ENRESERV 20:20
PROVIDERS: ADMIT Hospitalist; ATTEND Internal Medicine
DX: N17.9 Acute kidney failure, unspecified (principal); N39.0 Urinary tract infection, site not specified; N02.8 Recurrent and persistent hematuria with other morphologic changes; R00.0 Tachycardia, unspecified; K21.9 Gastro-esophageal reflux disease without esophagitis; E87.6 Hypokalemia; N18.2 Chronic kidney disease, stage 2 (mild); G47.33 Obstructive sleep apnea (adult) (pediatric); E66.9 Obesity, unspecified; Z68.37 Body mass index [BMI] 37.0-37.9, adult; Z79.899 Other long term (current) drug therapy; Z87.891 Personal history of nicotine dependence

== ENCOUNTER 2017-09-06 15:17 | Emergency (ER) | payer OTHER ==
[~2017-09-06] VITALS: Ht 157.5 cm; Wt 81.5 kg
[~2017-09-06 15:17] MED LIST changes: -FLUT0.15 NAE; +LCTX PO; +LEVO1TAB35 PO; -ONDA8TAB6 PO; -TRMCR130WC EXT
[2017-09-06] MEDS ORDERED: FLUT0.15 NAE (15:21)
[2017-09-06] MEDS ORDERED: TRMCR130WC EXT (15:21)
[2017-09-06] MEDS ORDERED: ONDA8TAB6 PO (15:21)
[2017-09-06 15:32] VITALS: TEMP 37; Ht 157.5 cm; Wt 81.5 kg
[2017-09-06] MEDS ORDERED: SODIUM CHLORIDE 0.9% 1000ML 1,000 ML IV STA (15:39)
[2017-09-06 16:12] LABS: BASO % 0.1 %; BASO ABS # 0.01 K/uL (0-0.2); EOS % 4.7 %; EOS ABS # 0.44 K/uL (0-0.5); HEMOGLOBIN 13.1 g/dL (12.0-16.0); IG# 0.01 K/uL (0.00-0.02); LYMPH % 29.9 %; LYMPH ABS # 2.78 K/uL (1.2-3.4); MEAN CELL VOLUME 88.9 fL (80-100); MEAN CORPUSCULAR HEMOGLOBIN 31.5 pg (25-34); MEAN CORPUSCULAR HGB CONC 35.4 g/dl (32-36); MEAN PLATELET VOLUME 11.7 fL (7.4-10.4); MONO % 7.2 %; MONO ABS # 0.67 K/uL (0.11-0.59); NEUT ABS # 5.38 K/uL (1.4-6.5); PLATELET COUNT 226 K/uL (130-400); RED CELL DISTRIBUTION WIDTH SD 41.5 fL (36.4-46.3); WHITE BLOOD COUNT 9.29 K/uL (4.8-10.8)
[2017-09-06 16:32] LABS: ALT/SGPT 26 U/L (12-78); BLOOD UREA NITROGEN 26 mg/dl (7-18); CALCIUM 8.7 mg/dl (8.5-10.1); CARBON DIOXIDE 28 mmol/L (21-32); CREATININE 0.88 mg/dl (0.60-1.20); GLUCOSE 85 mg/dl (70-99); LIPASE 235 U/L (73-393); POTASSIUM 3.1 mmol/L (3.5-5.1); SODIUM 139 mmol/L (136-145)
[2017-09-06 16:35] LABS: ALKALINE PHOSPHATASE 37 U/L (45-117); AST/SGOT 15 U/L (15-37); TOTAL PROTEIN 6.5 gm/dl (6.4-8.2)
--- NOTE | 2017-09-06 16:41 | DIAGNOSTIC IMAGING REPORT ---
CT OF THE ABDOMEN AND PELVIS WITHOUT CONTRAST, STONE PROTOCOL CLINICAL HISTORY: Bilateral flank pain. COMPARISON STUDY: CT of the abdomen and pelvis April 28, 2017. TECHNIQUE: Helical axial images of the abdomen and pelvis were obtained without IV or oral contrast according to renal stone protocol. A dose lowering technique was utilized adhering to the principles of ALARA. FINDINGS: No renal, ureteral or bladder calculi are present. There is no hydronephrosis or hydroureter. Evaluation of the remainder of the abdomen and pelvis is suboptimal on this unenhanced exam. The liver, spleen, adrenal glands and pancreas are unremarkable. There is no biliary or pancreatic ductal dilatation. There is no peripancreatic or pericholecystic infiltration. Caliber of small and large bowel are normal. The appendix is likely surgically absent. There is no lymphadenopathy or ascites. The uterus is surgically absent. There is gas within the vagina. No suspicious skeletal lesions are present IMPRESSION: 1. No urinary calculi or hydronephrosis. 2. No acute process within the abdomen or pelvis on unenhanced exam. Electronically signed by: Joel Mccarthy M.D. 09/06/2017 4:40 PM Dictated Date/Time: 09/06/2017 4:33 PM
[2017-09-06] MEDS ORDERED: VENL75CA PO (16:57)
--- NOTE | 2017-09-06 16:58 | EMERGENCY ROOM VISIT NOTE ---
History Report prepared by Babs: Kerwin Roblse Under the Supervision of: Dr. Eugene Almonte D.O. First contact with patient: 15:35 Chief Complaint: URINARY SYMPTOMS Stated Complaint: URINARY SYMPTOMS,DOC REFERRED History of Present Illness The patient is a 37 year old female who presents to the Emergency Room with complaints of urinary symptoms that began 1 week ago. She states she had a UTI and has been on Cipro for 1 week. She states that she went to Dr. Farmer who referred her to ED for blood work and imaging. She states that she might have a kidney infection and states she has IgA nephropathy. She states she has excess blood in her urine, insufficient urine volume, back tenderness, intermittent fever for the past 4 days. She denies nausea. Source of History: patient Onset: 1 week ago Position: other (global) Timing: constant Associated Symptoms: + fevers (intermittent), + back pain, + urinary symptoms (excess blood and insufficient volume), No nausea Review of Systems See HPI for pertinent positives & negatives. A total of 10 systems reviewed and were otherwise negative. Past Medical & Surgical Medical Problems: (1) Endometriosis (2) GERD (gastroesophageal reflux disease) (3) Hx of symptomatic hypotension (4) Hypokalemia (5) IgA nephropathy (6) VERONICA (obstructive sleep apnea) (7) PCOS (polycystic ovarian syndrome) (8) Psoriasis (9) Sinus tachycardia Surgical Problems: (1) H/O cystoscopy (2) History of dental surgery (3) History of hysterectomy (4) S/P appendectomy (5) S/P tonsillectomy Family History Pulmonary embolism MOTHER Sudden cardiac GRANDFATHER Uterine cancer GRANDMOTHER Social History Smoking Status: Former Smoker Alcohol Use: occasionally Drug Use: none Marital Status: Housing Status: lives with significant other Occupation Status: employed Current/Historical Medications Scheduled Allopurinol (Allopurinol), 300 MG PO QAM Atenolol (Tenormin), 25 MG PO BID Hydrochlorothiazide (Hctz), 25 MG PO QAM [place]-3 Fatty Acids (Fish Oil), 1,000 UNITS PO TIDM Potassium Chloride Microencaps (Potassium Chloride Er), 20 MEQ PO DAILY Venlafaxine Hcl (Effexor Xr), 1 CAP PO DAILY Scheduled PRN Fluticasone Propionate (Nasal) (Flonase Allergy Relief), 2 SPRAYS BENNIE DAILY PRN for ALLERGIC REACTION Ondansetron Hcl (Zofran), 8 MG PO Q8 PRN for Nausea Triamcinolone Acet (Aristocort 0.1%), 1 APPLN EXT BID PRN for rash Allergies Coded Allergies: Iodine (Verified Allergy, Mild, HIVES, 09/06/17) Penicillins (Verified Allergy, Mild, HIVES, 09/06/17) Shellfish (Verified Allergy, Mild, HIVES, 09/06/17) Physical Exam Vital Signs Date Time Temp Pulse Resp B/P (MAP) Pulse Ox O2 Delivery O2 Flow Rate FiO2 09/06/17 15:32 37.0 93 20 133/89 98 Room Air Physical Exam CONSTITUTIONAL/VITAL SIGNS: Reviewed / noted above. GENERAL: Non-toxic in appearance. INTEGUMENTARY: Warm, dry, and [place]. HEAD: Normocephalic. EYES: without scleral icterus or trauma. ENT/OROPHARYNX: clear and moist. LYMPHADENOPATHY/NECK: Is supple without lymphadenopathy or meningismus. RESPIRATORY: Lungs clear and equal. CARDIOVASCULAR: Regular rate and rhythm. GI/ABDOMEN: Soft and nontender. No organomegaly or pulsatile mass. No rebound or guarding. Normal bowel sounds. EXTREMITIES: Warm and well perfused. BACK: Bilateral CVA tenderness. NEUROLOGICAL: Intact without focal deficits. PSYCHIATRIC: normal affect. MUSCULOSKELETAL: Normally developed with good muscle tone. Medical Decision & Procedures ER Provider Diagnostic Interpretation: Radiology results as stated below per my review and radiologist interpretation: CT OF THE ABDOMEN AND PELVIS WITHOUT CONTRAST, STONE PROTOCOL CLINICAL HISTORY: Bilateral flank pain. COMPARISON STUDY: CT of the abdomen and pelvis April 28, 2017. TECHNIQUE: Helical axial images of the abdomen and pelvis were obtained without IV or oral contrast according to renal stone protocol. A dose lowering technique was utilized adhering to the principles of ALARA. FINDINGS: No renal, ureteral or bladder calculi are present. There is no hydronephrosis or hydroureter. Evaluation of the remainder of the abdomen and pelvis is suboptimal on this unenhanced exam. The liver, spleen, adrenal glands and pancreas are unremarkable. There is no biliary or pancreatic ductal dilatation. There is no peripancreatic or pericholecystic infiltration. Caliber of small and large bowel are normal. The appendix is likely surgically absent. There is no lymphadenopathy or ascites. The uterus is surgically absent. There is gas within the vagina. No suspicious skeletal lesions are present IMPRESSION: 1. No urinary calculi or hydronephrosis. 2. No acute process within the abdomen or pelvis on unenhanced exam. Electronically signed by: Joel Mccarthy M.D. 09/06/2017 4:40 PM Dictated Date/Time: 09/06/2017 4:33 PM Laboratory Results 09/06/17 16:00 Red Blood Count 4.16, Mean Corpuscular Volume 88.9, Mean Corpuscular Hemoglobin 31.5, Mean Corpuscular Hemoglobin Concent 35.4, Mean Platelet Volume 11.7, Neutrophils (%) (Auto) 58.0, Lymphocytes (%) (Auto) 29.9, Monocytes (%) (Auto) 7.2, Eosinophils (%) (Auto) 4.7, Basophils (%) (Auto) 0.1, Neutrophils # (Auto) 5.38, Lymphocytes # (Auto) 2.78, Monocytes # (Auto) 0.67, Eosinophils # (Auto) 0.44, Basophils # (Auto) 0.01 09/06/17 16:00 Test 09/06/17 16:00 White Blood Count 9.29 K/uL (4.8-10.8) Red Blood Count 4.16 M/uL (4.2-5.4) Hemoglobin 13.1 g/dL (12.0-16.0) Hematocrit 37.0 % (37-47) Mean Corpuscular Volume 88.9 fL (80-100) Mean Corpuscular Hemoglobin 31.5 pg (25-34) Mean Corpuscular Hemoglobin Concent 35.4 g/dl (32-36) Platelet Count 226 K/uL (130-400) Mean Platelet Volume 11.7 fL (7.4-10.4) Neutrophils (%) (Auto) 58.0 % Lymphocytes (%) (Auto) 29.9 % Monocytes (%) (Auto) 7.2 % Eosinophils (%) (Auto) 4.7 % Basophils (%) (Auto) 0.1 % Neutrophils # (Auto) 5.38 K/uL (1.4-6.5) Lymphocytes # (Auto) 2.78 K/uL (1.2-3.4) Monocytes # (Auto) 0.67 K/uL (0.11-0.59) Eosinophils # (Auto) 0.44 K/uL (0-0.5) Basophils # (Auto) 0.01 K/uL (0-0.2) RDW Standard Deviation 41.5 fL (36.4-46.3) RDW Coefficient of Variation 13.0 % (11.5-14.5) Immature Granulocyte % (Auto) 0.1 % Immature Granulocyte # (Auto) 0.01 K/uL (0.00-0.02) Anion Gap 7.0 mmol/L (3-11) Est Creatinine Clear Calc Drug Dose 87.4 ml/min Estimated GFR () 98.0 Estimated GFR (Non- 84.5 BUN/Creatinine Ratio 29.9 (10-20) Calcium Level 8.7 mg/dl (8.5-10.1) Total Bilirubin 0.3 mg/dl (0.2-1) Direct Bilirubin < 0.1 mg/dl (0-0.2) Aspartate Amino Transf (AST/SGOT) 15 U/L (15-37) Alanine Aminotransferase (ALT/SGPT) 26 U/L (12-78) Alkaline Phosphatase 37 U/L (45-117) Total Protein 6.5 gm/dl (6.4-8.2) Albumin 3.0 gm/dl (3.4-5.0) Lipase 235 U/L (73-393) Laboratory results as stated above per my review. Medications Administered Medications (Trade) Dose Ordered Sig/Carolyn Route Start Time Stop Time Status Last Admin Dose Admin Sodium Chloride 1,000 ml @ 999 mls/hr Q1H1M STAT IV 09/06/17 15:39 09/06/17 16:39 DC 09/06/17 15:56 999 MLS/HR ED Course 1535: Previous medical records were reviewed. The patient was evaluated in room C10. A complete history and physical examination was performed. 1539: Sodium Chloride 1000 ml @ 999 mls/hr IV. 1700: On reevaluation, the patient is doing well. I discussed the results and findings with the patient. She verbalized agreement of the treatment plan. She was discharged home. Medical Decision Differential considered: pancreatitis, hepatitis, or acute cholecystitis, AAA, UTI, pyelonephritis, kidney stones, appendicitis, diverticulitis, shingles, bowel obstruction mesenteric ischemia, intussusception,hernia, ovarian torsion, ruptured ovarian cyst,ectopic , . This is a 37-year-old female who presents to the ED after being seen by Dr. Farmer earlier today. The patient has been having some back pain and recently had some urinary tract infection symptoms and started herself on Cipro week ago. She continues with back pain and was evaluated at Dr. Farmer's office. A urinalysis there revealed some large amount of blood and protein. No evidence of urinary tract infection. Because of her symptoms she was sent here for imaging studies and blood work. Her exam reveals some bilateral CVA tenderness. She is otherwise nontoxic in appearance and in no distress. Her vital signs are normal. The patient's CBC is normal, chemistry panel was unremarkable. BUN is 26. Kidney function was otherwise normal. CT scan of the abdomen and pelvis did not show acute process. The patient was hydrated with IV fluids. She is felt to be stable for discharge and outpatient follow- up. Medication Reconcilliation Current Medication List: was personally reviewed by me Blood Pressure Screening Patient's blood pressure: Normal blood pressure Blood pressure disposition: Did not require urgent referral Impression Primary Impression: Flank pain Additional Impression: Hematuria Scribe Attestation The scribe's documentation has been prepared under my direction and personally reviewed by me in its entirety. I confirm that the note above accurately reflects all work, treatment, procedures, and medical decision making performed by me. Departure Information Dispostion Home / Self-Care Referrals Sunil Beard M.D. (PCP) Patient Instructions My [facility] Additional Instructions Follow-up with your urologist on Friday for recheck. Follow-up with your doctor for further care and evaluation in 1-2 days. Return to the emergency department for worsening or new symptoms or any concerns. You have been examined and treated today on an emergency basis only. This is not a substitute for, or an effort to provide, complete comprehensive medical care. It is impossible to recognize and treat all injuries or illnesses in a single emergency department visit. It is therefore important that you follow up closely with your doctor. Call as soon as possible for an appointment. Increase daily fluid intake. Problem Qualifiers
[2017-09-06 17:17] VITALS: BP 117/73; PULSE 82; O2SAT 100
[2017-09-06] MEDS ORDERED: POTA20TA13 PO (20:31)
== END 2017-09-06 17:19 | disposition home or self-care (01) ==
LOC: C.EDB 15:18 → C.EDC 17:19
DX: R10.9 Unspecified abdominal pain (principal); R31.9 Hematuria, unspecified; E28.2 Polycystic ovarian syndrome; Z87.440 Personal history of urinary (tract) infections; Z87.891 Personal history of nicotine dependence; Z90.710 Acquired absence of both cervix and uterus; Z98.818 Other dental procedure status; Z90.89 Acquired absence of other organs; Z98.890 Other specified postprocedural states; Z82.49 Family history of ischemic heart disease and other diseases of the circulatory system; Z82.41 Family history of sudden cardiac death; Z80.49 Family history of malignant neoplasm of other genital organs

== ENCOUNTER 2021-10-08 09:45 | Observation (INO) ==
[2021-10-08] MEDS ORDERED: ASPIRIN CHEW 324 MG PO STA ×2 (10:04→11:59)
[2021-10-08] MEDS ORDERED: NITROGLYCERIN SL 0.4 MG/TAB TAB SL STA (10:04)
--- NOTE | 2021-10-08 10:06 | Emergency Department Note ---
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 She was handing out medications as she felt hot and lightheaded. She checked her blood pressure was elevated in the 170s. She has also been having chest pressure since then. No arm or jaw pain. No belly pain, nausea, vomiting, or diarrhea. No dysuria, urgency, or frequency. No other exacerbating or remitting factors. ROS: See above HPI for pertinent positives & negatives. A total of 10 systems reviewed and were otherwise negative. PAST MEDICAL HISTORY:See Below PAST SURGICAL HISTORY:See Below FAMILY HISTORY:See Below SOCIAL HISTORY:See Below HOME MEDICATIONS:See Below ALLERGIES:See Below VITALS:See Below PHYSICAL EXAMINATION: GENERAL: Sitting up in bed, alert, well appearing, well nourished, no distress, non-toxic EYE EXAM: normal conjunctiva. PERRL and EOM's grossly intact. OROPHARYNX: no exudate, no erythema, lips, buccal mucosa, and tongue normal and mucous membranes are moist NECK: supple, no nuchal rigidity, no adenopathy, non-tender LUNGS: Clear to auscultation. Normal chest wall mechanics HEART: no murmurs, S1 normal and S2 normal ABDOMEN: abdomen soft, non-tender, normo-active bowel sounds, no masses, no rebound or guarding. UPPER EXTREMITIES: upper extremities are grossly normal. LOWER EXTREMITIES: No pitting edema. Calf cervical bilateral NEURO EXAM: Normal sensorium, cranial nerves II-XII grossly intact, normal speec h, no gross weakness of arms, no gross weakness of legs. MEDICAL DECISION MAKING: Patient is a 41-year-old female who presents the ER for elevated blood pressure was lightheadedness and chest pressure. IV was established blood work was obtained. Systolics were 170s to 180s with diastolics around 120. She was given nitro and her pain resolved. 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 Denies any history of diabetes, hypertension or hyper lipidemia. She has no normal exertional symptoms. Labs showed no significant leukocytosis or anemia. BMP with slightly elevated chloride at 109. LFTs bilirubin were unremarkable. Lipase was normal. Chest x-ray was clean. EKG was nondiagnostic. Symptoms resolved with nitro. She was given aspirin. Discussed with cardiology and she will be observed overnight for rule out. Triage Nursing notes reviewed. Limited review of prior medical records performed Vital Signs: reviewed and remarkable for HTN and tachy Differential diagnosis: Differential diagnoses includes but is not limited to acute coronary syndrome, myocardial infarction, pericarditis, pulmonary embolus, aortic dissection, pneumonia, pneumothorax, musculoskeletal, shingles, esophageal. ER treatment provided: See below Diagnostics interpreted by me: ECG: Sinus tachycardia rate of 110 Normal axis No PVCs QTC 473 Cardiac Monitoring: An order was placed for continuous cardiac monitoring. The monitor shows a rate of 110 with sinus rhythm. Laboratory studies: As stated above and show below. Imaging studies: Portable AP upright 1 view of the chest was unremarkable Consultation(s): Discussed with hospitalist for further evaluation Procedures: none Critical Care: None Past Med/Surg History Medical History Endometriosis GERD (gastroesophageal reflux disease) IgA nephropathy VERONICA (obstructive sleep apnea) "resolved with weight loss per patient; not on CPAP" PCOS (polycystic ovarian syndrome) Psoriasis Surgical History History of hysterectomy Family History Other Family history non-contributory Social History Smoking Status: Never smoker Tobacco Type: Cigarettes Preferred Language: Indian Feels Safe at Home: Yes Allergies Allergies Allergy/AdvReac Type Severity Reaction Status Date / Time iodine Allergy Mild HIVES Verified 10/08/21 11:41 Penicillins Allergy Mild HIVES Verified 10/08/21 11:41 shellfish derived Allergy Mild HIVES Verified 10/08/21 11:41 Home Meds Home Medications Medication Instructions Recorded Confirmed lisinopril 2.5 mg tablet 2.5 mg PO QAM 10/08/21 10/08/21 lisinopril 5 mg tablet 5 mg PO QPM 10/08/21 10/08/21 rosuvastatin 10 mg tablet 10 mg PO QPM 10/08/21 10/08/21 Results & Data (ED) Vital Signs Vital Signs - 24 hr 10/08/21 09:49 10/08/21 09:58 10/08/21 10:00 Temperature 36.3 C L Temperature Source Temporal Artery Scan Pulse Rate 112 H 103 H 108 H Pulse Rate from SpO2 Sensor 104 H 108 H Respiratory Rate 20 22 20 Respiratory Effort / Characteristics Non-Labored Respiratory Depth Normal Blood Pressure 161/111 H Blood Pressure Mean 127 Pulse Oximetry 100 99 100 Oxygen Delivery Method Room Air Sepsis Recent Fever Within 48 Hours No Sepsis New/Unexplained Change in Mental Status N/A Sepsis Action Taken by Nursing No Action Required 10/08/21 10:30 10/08/21 11:00 10/08/21 11:30 Temperature Temperature Source Pulse Rate 110 H 91 H 92 H Pulse Rate from SpO2 Sensor 109 H 89 92 H Respiratory Rate 19 4 L 20 Respiratory Effort / Characteristics Respiratory Depth Blood Pressure 132/89 128/89 Blood Pressure Mean 103 102 Pulse Oximetry 100 100 99 Oxygen Delivery Method Sepsis Recent Fever Within 48 Hours Sepsis New/Unexplained Change in Mental Status Sepsis Action Taken by Nursing 10/08/21 12:00 10/08/21 12:30 Temperature Temperature Source Pulse Rate 100 H 97 H Pulse Rate from SpO2 Sensor 99 H 98 H Respiratory Rate 16 22 Respiratory Effort / Characteristics Respiratory Depth Blood Pressure 112/86 Blood Pressure Mean 94 Pulse Oximetry 98 98 Oxygen Delivery Method Sepsis Recent Fever Within 48 Hours Sepsis New/Unexplained Change in Mental Status Sepsis Action Taken by Nursing Laboratory Data Result diagrams: 10/08/21 10:25 10/08/21 11:22 Lab Results 10/08/21 10/08/21 10/08/21 Range/Units 10:25 10:25 11:22 WBC 5.61 (4.8-10.8) K/uL RBC 4.44 (4.2-5.4) M/uL Hgb 13.5 (12.0-16.0) g/dL Hct 40.3 (37-47) % MCV 90.8 (80-100) fL MCH 30.4 (25-34) pg MCHC 33.5 (32-36) g/dL RDW Std Deviation 42.9 (36.4-46.3) fL RDW Coeff of Vanessa 12.9 (11.5-14.5) % Plt Count 254 (130-400) K/uL MPV 11.4 H (7.4-10.4) fL Immature Gran % (Auto) 0.2 % Neut % (Auto) 44.1 % Lymph % (Auto) 44.4 % Towns % (Auto) 11.1 % Eos % (Auto) 0.0 % Baso % (Auto) 0.2 % Neut # (Auto) 2.48 (1.4-6.5) K/uL Lymph # (Auto) 2.49 (1.2-3.4) K/uL Towns # (Auto) 0.62 H (0.11-0.59) K/uL Eos # (Auto) 0.00 (0-0.5) K/uL Baso # (Auto) 0.01 (0-0.2) K/uL Immature Gran # (Auto) 0.01 (0.00-0.02) K/uL Sodium 139 (136-145) mmol/L Potassium 3.9 (3.5-5.1) mmol/L Chloride 109 H (98-107) mmol/L Carbon Dioxide 28 (21-32) mmol/L Anion Gap 2 L (3-11) BUN 15 (6-23) mg/dl Creatinine 0.78 (0.6-1.2) mg/dl Est Cr Clr Drug Dosing 105.1 ml/min Est GFR ( Amer) 110.2 ml/min Est GFR (Non-Af Amer) 95.1 ml/min BUN/Creatinine Ratio 19.2 (10-20) Glucose 94 (70-99(Fasting)) mg/dl Calcium 8.8 (8.5-10.1) mg/dl Total Bilirubin 0.5 (0.2-1.0) mg/dl AST 17 (13-39) U/L ALT 27 (7-52) U/L Alkaline Phosphatase 32 L (34-104) U/L Troponin I < 0.03 (0-0.04) ng/ml Total Protein 6.4 (6.0-8.3) gm/dl Albumin 3.8 (3.4-5.0) gm/dl Globulin 2.6 (2.5-4.0) gm/dl Albumin/Globulin Ratio 1.5 (0.9-2) Lipase 62 (11-82) U/L SARS-CoV-2, RNA, NAAT (NEGATIVE) 10/08/21 Range/Units 12:08 WBC (4.8-10.8) K/uL RBC (4.2-5.4) M/uL Hgb (12.0-16.0) g/dL Hct (37-47) % MCV (80-100) fL MCH (25-34) pg MCHC (32-36) g/dL RDW Std Deviation (36.4-46.3) fL RDW Coeff of Vanessa (11.5-14.5) % Plt Count (130-400) K/uL MPV (7.4-10.4) fL Immature Gran % (Auto) % Neut % (Auto) % Lymph % (Auto) % Towns % (Auto) % Eos % (Auto) % Baso % (Auto) % Neut # (Auto) (1.4-6.5) K/uL Lymph # (Auto) (1.2-3.4) K/uL Towns # (Auto) (0.11-0.59) K/uL Eos # (Auto) (0-0.5) K/uL Baso # (Auto) (0-0.2) K/uL Immature Gran # (Auto) (0.00-0.02) K/uL Sodium (136-145) mmol/L Potassium (3.5-5.1) mmol/L Chloride (98-107) mmol/L Carbon Dioxide (21-32) mmol/L Anion Gap (3-11) BUN (6-23) mg/dl Creatinine (0.6-1.2) mg/dl Est Cr Clr Drug Dosing ml/min Est GFR ( Amer) ml/min Est GFR (Non-Af Amer) ml/min BUN/Creatinine Ratio (10-20) Glucose (70-99(Fasting)) mg/dl Calcium (8.5-10.1) mg/dl Total Bilirubin (0.2-1.0) mg/dl AST (13-39) U/L ALT (7-52) U/L Alkaline Phosphatase (34-104) U/L Troponin I (0-0.04) ng/ml Total Protein (6.0-8.3) gm/dl Albumin (3.4-5.0) gm/dl Globulin (2.5-4.0) gm/dl Albumin/Globulin Ratio (0.9-2) Lipase (11-82) U/L SARS-CoV-2, RNA, NAAT NEGATIVE (NEGATIVE) Administered Medications Discontinued Medications Aspirin (Aspirin Chew 324 Mg) 324 mg PO NOW STA Stop: 10/08/21 10:05 Last Admin: 10/08/21 10:27 Dose: 324 mg Documented by: [id number] Aspirin (Aspirin Chew 324 Mg) 324 mg PO NOW STA Stop: 10/08/21 12:00 Last Admin: 10/08/21 12:05 Dose: Not Given Documented by: [id number] Nitroglycerin (Nitroglycerin Sl 0.4 Mg/Tab Tab) 0.4 mg SL NOW STA Stop: 10/08/21 10:05 Last Admin: 10/08/21 10:28 Dose: 0.4 mg Documented by: [id number] Imaging Data Radiologist's Impression: Chest X-Ray 10/08/21 10:04 XR chest 1V portable CLINICAL HISTORY: Atypical chest pain TECHNIQUE: Single frontal radiograph of the chest was obtained. Comparison: Comparison is made to chest one view 12/10/2016 FINDINGS: No lines and tubes are seen. The cardiomediastinal silhouette is normal. The lungs are clear. No evidence of pleural effusion or pneumothorax. IMPRESSION: No acute chest disease. ACT 112: Negative or not required by law. Electronically signed by: Devin Pena M.D. 10/08/2021 10:58 AM Discharge Plan Visit Data Chief Complaint: Hypertension Stated Complaint: HYPERTENSION ED Provider: Trung Godinez Discharge Problem: Chest pain, HTN (hypertension) Forms Stand Alone Forms: [facility] Prescriptions Prescriptions: No Action lisinopril 5 mg tablet 5 mg PO QPM RF: 0 lisinopril 2.5 mg tablet 2.5 mg PO QAM RF: 0 rosuvastatin 10 mg tablet 10 mg PO QPM RF: 0 Referrals Referrals: Sunil Beard MD [Primary Care Provider] - Discharge Problem: Chest pain Qualifiers: Chest pain type: unspecified Qualified Code(s): R07.9 - Chest pain, unspecified HTN (hypertension) Qualifiers: Hypertension type: unspecified Qualified Code(s): I10 - Essential (primary) hypertension
--- NOTE | 2021-10-08 10:59 | XRay Report ---
XR chest 1V portable CLINICAL HISTORY: Atypical chest pain TECHNIQUE: Single frontal radiograph of the chest was obtained. Comparison: Comparison is made to chest one view 12/10/2016 FINDINGS: No lines and tubes are seen. The cardiomediastinal silhouette is normal. The lungs are clear. No evid ence of pleural effusion or pneumothorax. IMPRESSION: No acute chest disease. ACT 112: Negative or not required by law. Electronically signed by: Devin Pena M.D. 10/08/2021 10:58 AM
[2021-10-08 11:02] LABS: Troponin I < 0.03 ng/ml (0-0.04)
[2021-10-08 11:12] LABS: Alanine Aminotransferase 27 U/L (7-52); Albumin Globulin Ratio 1.5 (0.9-2); Albumin Level 3.8 gm/dl (3.4-5.0); Alkaline Phosphatase 32 U/L (34-104); Anion Gap 2 (3-11); BUN Creatinine Ratio 19.2 (10-20); Bilirubin,Total 0.5 mg/dl (0.2-1.0); Blood Urea Nitrogen 15 mg/dl (6-23); Calcium 8.8 mg/dl (8.5-10.1); Carbon Dioxide 28 mmol/L (21-32); Chloride 109 mmol/L (98-107); Creatinine Clr Calc Pharmacy 105.1 ml/min; Est GFR (African American) 110.2 ml/min; Est GFR (Non-African American) 95.1 ml/min; Globulin 2.6 gm/dl (2.5-4.0); Glucose 94 mg/dl (70-99(Fasting)); Lipase 62 U/L (11-82); Sodium 139 mmol/L (136-145); Total Protein 6.4 gm/dl (6.0-8.3)
[2021-10-08 11:18] LABS: Basophils # (auto) 0.01 K/uL (0-0.2); Basophils % (auto) 0.2 %; Hematocrit (blood only) 40.3 % (37-47); Hemoglobin 13.5 g/dL (12.0-16.0); Immature Granulocytes # (auto) 0.01 K/uL (0.00-0.02); Immature Granulocytes % (auto) 0.2 %; Lymphocytes # (auto) 2.49 K/uL (1.2-3.4); Lymphocytes % (auto) 44.4 %; Mean Corpuscular Hemoglobin 30.4 pg (25-34); Mean Corpuscular Hgb Conc 33.5 g/dL (32-36); Mean Corpuscular Volume 90.8 fL (80-100); Mean Platelet Volume 11.4 fL (7.4-10.4); Monocytes # (auto) 0.62 K/uL (0.11-0.59); Monocytes % (auto) 11.1 %; Neutrophils # (auto) 2.48 K/uL (1.4-6.5); Neutrophils % (auto) 44.1 %; Platelet Count 254 K/uL (130-400); RDW Coefficient of Variation 12.9 % (11.5-14.5); RDW Standard Deviation 42.9 fL (36.4-46.3); Red Blood Count 4.44 M/uL (4.2-5.4); White Blood Count 5.61 K/uL (4.8-10.8)
[2021-10-08 12:11] LABS: Potassium 3.9 mmol/L (3.5-5.1)
--- NOTE | 2021-10-08 12:25 | History & Physical Report ---
Date of Service October 08, 2021 Assessment & Plan (1) Chest pain: (2) Tachycardia: (3) Hypertensive urgency: Plan: - Admit to tele for observation for r/o - Trend cardiac biomarkers, initial set was negative - EKG reviewed as above - Check 2 D echo - If negative enzymes can consider a stress test tomorrow morning. - PT/OT consulted - Consult cardiology for tachycardia with hx of such and previously being on rate control agent, also for BP management (4) Hematuria: (5) IgA nephropathy: Plan: - Consult nephrology - Gross Hematuria new, previously had microscopic hematuria per her report - el evated BP concerning for renal etiology, will check renal U/S - Follows with Dr. Spears but has not seen her in approximately 1 year - Follow UA and urine culture - Afebrile, no wbc - Cr 0.78, BUN 15 and appear stable compared to most recent outpatient labs where Cr. 0.8, BUN 25 in August. (6) GERD (gastroesophageal reflux disease): Plan: - Hx of such, stable DVT ppx: - teds, scds, hold on anticoagulation with hematuria CODE: Full Dispo: From home, likely home tomorrow History of Present Illness Chief Complaint: Lightheadedness, elevated BP Primary Care Provider: Sunil Beard MD This is a 41-year-old female with PMHx of HTN, HLD, endometriosis, IgA nephropathy, obesity with BMI of 39.7 who presents to the ER with acute lightheadedness, dizziness and elevated blood pressure as high as systolic 180 and diastolic 110s. She was treated with a dose of nitro PO x 1 in the ER which improved her BP. 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 She checked her BP and was 180/100, but then continued to complete her morning tasks. After another hour or so, she thought that she would sit down, and relax, however her blood pressure recheck was still 178/110. She continued to feel worse therefore presented to the ER. She was started on fluids, and given nitro PO x 1. At no point did she have any chest pain, shortness of breath,or palpitations. At baseline she takes lisinopril 2.5 mg in the morning and 5 mg in the evening. As an outpatient she has been placed on this for kidney protection, and has been trialed to titrate up however blood pressure typically is too low to be able to do so. Her baseline blood pressure is 100/80. She also notes a history of unspecified tachycardia where she had seen Dr. Edwards as an outpatient about 3 years ago. She had been on medication for it before however is not no longer on a rate controlling med. She exercises routinely 4x per week with walks and circuit training. Yesterday the patient went wine tasting with her daughter and went to a [employer] where they tasted things throughout the day. She reports drinking 100 oz of water daily at baseline. Occasional alcohol consumption is not uncommon for her. She typically has 2 glasses of wine per week total. She has followed as an outpatient with Dr. Spears with nephrology, reports that she is likely due for repeat renal ultrasound very soon. She admits to seeing blood in her urine within the last week. She reports history of having microscopic hematuria however this is a change. She has had no medication changes recently. Denies other urinary co including dysuria, increased frequency or incontinence. Allergies Allergy/AdvReac Type Severity Reaction Status Date / Time iodine Allergy Mild HIVES Verified 10/08/21 11:41 Penicillins Allergy Mild HIVES Verified 10/08/21 11:41 shellfish derived Allergy Mild HIVES Verified 10/08/21 11:41 Home Medications Medication Instructions Recorded Confirmed Type lisinopril 2.5 mg tablet 2.5 mg PO QAM 10/08/21 10/08/21 History lisinopril 5 mg tablet 5 mg PO QPM 10/08/21 10/08/21 History rosuvastatin 10 mg tablet 10 mg PO QPM 10/08/21 10/08/21 History Past Med/Surg History Medical History Endometriosis GERD (gastroesophageal reflux disease) IgA nephropathy VERONICA (obstructive sleep apnea) "resolved with weight loss per patient; not on CPAP" PCOS (polycystic ovarian syndrome) Psoriasis Surgical History History of hysterectomy Family History Other Family history non-contributory Social History Smoking Status: Never smoker Tobacco Type: Cigarettes Hx Alcohol Use: No Hx Substance Use: No Preferred Language: Palestinian Beliefs That Will Affect Care: None Current Living Situation: Spouse Feels Safe at Home: Yes Safety Concerns: Feels Safe At This Time Review of Systems Review of Systems: Constitutional: No fever, sweats or chills Eyes: No diplopia, no worsening or blurred vision ENT: normal hearing, no trouble swallowing Respiratory: No cough, sputum, dyspnea at rest or on exertion Cardiovascular: As per HPI. No chest pain, tightness or palpitations Abdomen: No pain, nausea, vomiting, diarrhea or constipation : hematuria, no dysuria, pain, or incontinence Musculoskeletal: No joint pain, calf pain, swelling Neurologic: No weakness, numbness/tingling, or balance problems Psychiatric: No anxiety or depression Skin: No rash or itch Physical Exam Physical Exam: General: awake, alert, no apparent distress, obese with BMI of 39.7 Head: Normocephalic, atraumatic ENT: PERRL, EOMI, no pharyngeal exudate, mucous membranes moist Chest: Clear to auscultation, on room air, no adventitious breath sounds Cardiac: Regular rate and rhythm, no chest pressure with palpation, no murmur, no JVD, normal peripheral pulses, good capillary refill Abdominal: NABS x 4 quadrants, soft, nondistended, nontender to palpation, no rebound or guarding Extremities: Normal inspection, no peripheral edema or erythema, calfs nontender to palpation Psych: Normal mood and affect Neuro: AAO x 3, strength intact bilaterally and rated 5/5, no motor deficits, speech is clear, no peripheral sensory deficits Results & Data Results & Data ([facility]) Vital Signs (Past 12 Hours) Vital Signs Temp Pulse Resp BP Pulse Ox 10/08/21 11:30 92 H 20 128/89 99 10/08/21 11:00 91 H 4 L 100 10/08/21 10:30 110 H 19 132/89 100 10/08/21 10:00 108 H 20 100 10/08/21 09:58 103 H 22 99 10/08/21 09:49 36.3 C L 112 H 20 161/111 H 100 Laboratory Results 10/08/21 10/08/21 10/08/21 12:08 11:22 10:25 WBC RBC Hgb Hct MCV MCH MCHC RDW Std Deviation RDW Coeff of Vanessa Plt Count MPV Immature Gran % (Auto) Neut % (Auto) Lymph % (Auto) Mason % (Auto) Eos % (Auto) Baso % (Auto) Neut # (Auto) Lymph # (Auto) Mason # (Auto) Eos # (Auto) Baso # (Auto) Immature Gran # (Auto) Sodium 139 Potassium 3.9 Chloride 109 H Carbon Dioxide 28 Anion Gap 2 L BUN 15 Creatinine 0.78 Est Cr Clr Drug Dosing 105.1 Est GFR ( Amer) 110.2 Est GFR (Non-Af Amer) 95.1 BUN/Creatinine Ratio 19.2 Glucose 94 Calcium 8.8 Total Bilirubin 0.5 AST 17 ALT 27 Alkaline Phosphatase 32 L Troponin I < 0.03 Total Protein 6.4 Albumin 3.8 Globulin 2.6 Albumin/Globulin Ratio 1.5 Lipase 62 SARS-CoV-2, RNA, NAAT NEGATIVE 10/08/21 10:25 WBC 5.61 RBC 4.44 Hgb 13.5 Hct 40.3 MCV 90.8 MCH 30.4 MCHC 33.5 RDW Std Deviation 42.9 RDW Coeff of Vanessa 12.9 Plt Count 254 MPV 11.4 H Immature Gran % (Auto) 0.2 Neut % (Auto) 44.1 Lymph % (Auto) 44.4 Mason % (Auto) 11.1 Eos % (Auto) 0.0 Baso % (Auto) 0.2 Neut # (Auto) 2.48 Lymph # (Auto) 2.49 Mason # (Auto) 0.62 H Eos # (Auto) 0.00 Baso # (Auto) 0.01 Immature Gran # (Auto) 0.01 Sodium Potassium Chloride Carbon Dioxide Anion Gap BUN Creatinine Est Cr Clr Drug Dosing Est GFR ( Amer) Est GFR (Non-Af Amer) BUN/Creatinine Ratio Glucose Calcium Total Bilirubin AST ALT Alkaline Phosphatase Troponin I Total Protein Albumin Globulin Albumin/Globulin Ratio Lipase SARS-CoV-2, RNA, NAAT Diagnostic Findings Chest X-Ray 10/08/21 10:04 XR chest 1V portable CLINICAL HISTORY: Atypical chest pain TECHNIQUE: Single frontal radiograph of the chest was obtained. Comparison: Comparison is made to chest one view 12/10/2016 FINDINGS: No lines and tubes are seen. The cardiomediastinal silhouette is normal. The lungs are clear. No evidence of pleural effusion or pneumothorax. IMPRESSION: No acute chest disease. ACT 112: Negative or not required by law. Electronically signed by: Devin Pena M.D. 10/08/2021 10:58 AM ECG Additional Comments: 08-OCT-2021 09:26:51 [facility]-EDSTAT ROUTINE RETRIEVAL Poor data quality, interpretation may be adversely affected Sinus rhythm with Premature supraventricular complexes Left anterior fascicular block Septal infarct , age undetermined Abnormal ECG When compared with ECG of 18-NOV-2015 17:18, Premature supraventricular complexes are now Present 25mm/s10mm/[id number] 241CID: 3Referred by: REFERRED SELF Unconfirmed Vent. rate 76 BPM [place] interval 180 ms QRS duration 116 ms QT/QTc 430/483 ms Code Status & VTE Plan Code Status Full code- discussed with pt at bedside Supervising Physician Co-Signing Physician Notes Patient is a 41-year-old female with history of IgA nephropathy who presented to the ED today with episode of lightheadedness, dizziness and elevated blood pressure 180/110 with tachycardia, while at work. Also had episode of chest tightness during that episode. She came to the ED, and was treated with a dose of p.o. nitro after which her blood patient symptoms improved. Currently she feels fine and at baseline. No similar episodes in the past. Labs unremarkable. Tropx1 negative. EKG with no acute ischemic change. She is on low dose lisinopril for proteinuria. She usually runs low and was unable to tolerate beta mariajose in the past due to low BP (BB for sinus tachy in past; she was then on digoxin which was weaned off as she was doing better, she hasn't seen cardiology since). Follows with nephrology for IgA nephropathy, and lately has noticed change in her urine with gross hematuria.On exam, AAOx4. Chest clear, tachycardic, heart sounds normal, abd benign, no edema. Unclear cause of her hypertensive urgency. Chest tightness likely related to her hypertensive episode rather than primary cardiac event. Will place in observation on tele, trend trop, repeat EKG, renal US, consult cardio and nephro. I personally reviewed the record. I interviewed and examined the patient at bedside. Patient's care is coordinated with MARY Casillas. Please refer to the documentation above for details of patient's presentation and for discussion of other issues. (1) Chest pain Chest pain type: unspecified Qualified Code(s): R07.9 - Chest pain, unspecified
[2021-10-08] MEDS ORDERED: ONDANSETRON INJ 2 MG/ML 2 ML VIAL IV PRN (15:09)
[2021-10-08] MEDS: ACETAMINOPHEN 325 MG TAB PO PRN (15:27)
[2021-10-08 16:48] LABS: Appearance Urine Clear (Clear); Bacteria Urine Automated Negative (Negative); Bilirubin Urine Negative (Negative); Blood Urine 1+ (Negative); Color Urine Yellow; Epithelial Cell Urine Auto >30 /lpf (0-5); Glucose Urine UA Negative (Negative); Ketones Urine Negative (Negative); Leukocyte Esterase Urine Negative (Negative); Nitrite Urine Negative (Negative); Protein Urine 2+ (Negative); Specific Gravity Urine 1.019 (1.000-1.030); Urobilinogen Urine Negative (Negative); pH Urine 6.5 (4.5-7.5)
--- NOTE | 2021-10-08 17:26 | Cardiology Consultation ---
Date of Consultation October 08, 2021 Assessment & Plan (1) Hypertensive urgency: (2) Chest pain: (3) IgA nephropathy: (4) Sinus tachycardia: (5) PCOS (polycystic ovarian syndrome): (6) VERONICA (obstructive sleep apnea): (7) GERD (gastroesophageal reflux disease): It was my pleasure to see Mrs. Viramontes in cardiac consultation today. I believe her presenting symptoms are due to hypertensive urgency. I do not believe chest discomfort was due to ACS but myocardial strain. Is on low-dose lisinopril given her history of IgA nephropathy. States that she has had significant orthostatic hypotension in the past with higher doses and with combination of lisinopril and metoprolol. Given her presenting signs and symptoms I believe it would be beneficial to start her on a trial of low-dose metoprolol along with her current dose of lisinopril. We will start her on metoprolol 12.5 mg p.o. every 6 hours at this time and continue to monitor vitals closely overnight. Was previously diagnosed with obstructive sleep apnea but no longer on CPAP after weight loss, will recheck nocturnal pulse ox tonight. Above plan discussed with the patient and her and they are both in agreement. History of Present Illness Reason for Consultation: Hypertensive urgency and sinus tachycardia [facility] Attending Physician: Tr Nath MD History of Present Illness It was my pleasure to see Mrs. Viramontes in cardiac consultation today October 08, 2021. She is a very pleasant 41-year-old woman who was previously followed with our cardiology practice with Dr. Claire for inappropriate sinus tachycardia but was discharged from care in 2019. She presents to [facility] emergency department on 10/08/2021 with complaints of lightheadedness, chest discomfort, diaphoresis and nausea. 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 She was giving out medications when she suddenly felt very lightheaded and dizzy. Her blood pressure was checked at that time and it was in the 180s over 120s. She was also tachycardic. She laid down to rest but after some time she remained hypertensive and symptoms continue to worsen and she was brought into the emergency department. Upon arrival she was given sublingual nitroglycerin with resolution of her chest discomfort and improvement of her hypertension. She remained tachycardic with sinus tachycardia in the 100s to 1 teens. Currently she is resting comfortably. Allergies Allergy/AdvReac Type Severity Reaction Status Date / Time iodine Allergy Mild HIVES Verified 10/08/21 11:41 Penicillins Allergy Mild HIVES Verified 10/08/21 11:41 shellfish derived Allergy Mild HIVES Verified 10/08/21 11:41 Home Medications Medication Instructions Recorded Confirmed Type lisinopril 2.5 mg tablet 2.5 mg PO QAM 10/08/21 10/08/21 History lisinopril 5 mg tablet 5 mg PO QPM 10/08/21 10/08/21 History rosuvastatin 10 mg tablet 10 mg PO QPM 10/08/21 10/08/21 History Patient History Medical History Endometriosis GERD (gastroesophageal reflux disease) IgA nephropathy VERONICA (obstructive sleep apnea) "resolved with weight loss per patient; not on CPAP" PCOS (polycystic ovarian syndrome) Psoriasis Surgical History History of hysterectomy Family History Other Family history non-contributory Social History Smoking Status: Never smoker Tobacco Type: Cigarettes Hx Alcohol Use: No Hx Substance Use: No Preferred Language: Kosovan Beliefs That Will Affect Care: None Current Living Situation: Spouse Feels Safe at Home: Yes Safety Concerns: Feels Safe At This Time Review of Systems Review of Systems: All systems reviewed & are unremarkable except as noted in HPI & below Physical Exam Physical Exam: Physical Exam: General: Awake, alert and oriented x 3. No acute distress. HEENT: Normocephalic, atraumatic. Pupils equal, round and reactive to light and accommodation. Extraocular muscles are intact. Anicteric sclera. Moist mucous membranes. Neck: No JVD. No bruit. Cardiovascular: Regular. No S-4. Normal S-1 and S-2. No S-3. No murmurs, rubs or gallops. Pulmonary: Clear to auscultation bilaterally. No rales, rhonchi, or wheezing. Abdomen: Bowel sounds x 4, soft. No rebound, guarding or tenderness. No organ omegaly. Extremities: No clubbing, cyanosis or edema. +2 pedal pulses bilaterally. Skin: Warm and dry. Results & Data ([facility]) Vital Signs (Past 12 Hours) Vital Signs Temp Pulse Pulse Resp BP BP Pulse Ox 10/08/21 15:29 36.7 C 98 H 18 133/91 100 10/08/21 15:15 36.7 C 98 H 18 133/91 100 10/08/21 15:07 96 H 10/08/21 14:30 91 H 24 139/87 98 10/08/21 14:00 97 H 17 99 10/08/21 13:55 98 H 20 100 10/08/21 13:30 91 H 14 126/88 98 10/08/21 13:00 88 20 99 10/08/21 12:30 97 H 22 112/86 98 10/08/21 12:00 100 H 16 98 10/08/21 11:30 92 H 20 128/89 99 10/08/21 11:00 91 H 4 L 100 10/08/21 10:30 110 H 19 132/89 100 10/08/21 10:00 108 H 20 100 10/08/21 09:58 103 H 22 99 10/08/21 09:49 36.3 C L 112 H 20 161/111 H 100 (1) Chest pain Chest pain type: unspecified Qualified Code(s): R07.9 - Chest pain, unspecified
[2021-10-08] MEDS: METOPROLOL TARTRATE 25 MG TAB PO SCH (19:14)
[2021-10-08] MEDS ORDERED: lisinopril 5 MG TAB PO SCH (21:00)
[2021-10-08] MEDS ORDERED: ROSUVASTATIN CALCIUM 10 MG TAB PO SCH (21:00)
--- NOTE | 2021-10-08 23:06 | Electrocardiogram Report ---
Test Reason : Blood Pressure : / mmHG Vent. Rate : 110 BPM Atrial Rate : 110 BPM P-R Int : 146 ms QRS Dur : 076 ms QT Int : 350 ms P-R-T Axes : 062 007 022 degrees QTc Int : 473 ms Sinus tachycardia Otherwise normal ECG When compared with ECG of 11-DEC-2016 07:10, Vent. rate has increased BY 45 BPM Confirmed by Fabio Lloyd ([id number]) on 10/08/2021 11:06:12 PM Referred By: REFERRED SELF Confirmed By:Fabio Lloyd
[2021-10-09] MEDS: METOPROLOL TARTRATE 25 MG TAB PO SCH ×3 (00:49→11:51)
[2021-10-09] MEDS: ACETAMINOPHEN 325 MG TAB PO PRN ×2 (06:08→10:21)
[2021-10-09 07:37] LABS: Hematocrit (blood only) 37.3 % (37-47); Hemoglobin 12.8 g/dL (12.0-16.0); Mean Corpuscular Hemoglobin 31.1 pg (25-34); Mean Corpuscular Hgb Conc 34.3 g/dL (32-36); Mean Corpuscular Volume 90.5 fL (80-100); Mean Platelet Volume 10.8 fL (7.4-10.4); Platelet Count 239 K/uL (130-400); RDW Coefficient of Variation 12.9 % (11.5-14.5); Red Blood Count 4.12 M/uL (4.2-5.4); White Blood Count 5.03 K/uL (4.8-10.8)
--- NOTE | 2021-10-09 07:44 | Ultrasound Report ---
RENAL ULTRASOUND HISTORY: hypertensive urgency, hematuria COMPARISON: Abdomen and pelvis CT 03/30/2021. FINDINGS: Right kidney: 10.6 cm. No hydronephrosis. Mild cortical thinning. Left kidney: 11.5 cm. No hydronephrosis. Mild cortical thinning. Bladder: No bladder wall thickening. The bilateral ureteral jets were identified. IMPRESSION: Mild bilateral renal cortical thinning. No hydronephrosis. ACT 112: Negative or not required by law. Electronically signed by: Chucky Bailey M.D. 10/09/2021 7:43 AM
[2021-10-09 08:10] LABS: Albumin Globulin Ratio 1.3 (0.9-2); Albumin Level 3.4 gm/dl (3.4-5.0); BUN Creatinine Ratio 16.1 (10-20); Bilirubin,Total 0.8 mg/dl (0.2-1.0); Calcium 7.7 mg/dl (8.5-10.1); Creatinine Clr Calc Pharmacy 130.9 ml/min; Est GFR (African American) 130.7 ml/min; Est GFR (Non-African American) 112.8 ml/min; Globulin 2.7 gm/dl (2.5-4.0); Magnesium 1.9 mg/dl (1.7-2.4); Phosphorus 2.4 mg/dl (2.5-4.9); Total Protein 6.1 gm/dl (6.0-8.3)
[2021-10-09] MEDS ORDERED: lisinopril 2.5 MG TAB PO SCH (09:00)
[2021-10-09] MEDS ORDERED: ROSUVASTATIN CALCIUM 10 MG TAB PO SCH (09:00)
--- NOTE | 2021-10-09 10:41 | Consultation Report ---
NEPHROLOGY CONSULTATION NOTE DATE OF SERVICE: 10/09/2021. REASON FOR CONSULTATION: The patient with known IgA nephropathy with episode of gross hematuria a fe w weeks back. HISTORY OF PRESENT ILLNESS: The patient is a 41-year-old female with known IgA nephropathy diagnosed for about 7 years, who follows with Dr. Kandy Berg in nephrology. It does not appear she had an y significant immunosuppressive therapy for the disease. She presented to the Emergency Department y esterday because of feeling of acute lightheadedness, dizziness as well as elevated blood pressure an d some chest discomfort. Her blood pressure was around 180/120. At home, the only blood pressure med ication she takes is lisinopril 7.5 mg per day. She has had issues with blood pressure dropping too low as an outpatient. Since admission, the only medicine that has been added is a low-dose metoprolo l, and with that, her blood pressure this morning is controlled and is at goal. She reports having a n episode of questionable gross hematuria a few weeks back. She always has microscopic hematuria and mild proteinuria from her underlying IgA nephropathy. She had a renal ultrasound done already, and it was unremarkable for both kidney as well as bladder. She feels she is back to her baseline at thi s point. She has already been seen by cardiology for the chest pain, tachycardia and high blood press ure, and metoprolol was added. Her kidney function is normal. ALLERGIES: IODINE, PENICILLIN, SHELLFISH. MEDICATIONS: Home medication list was reviewed in detail and includes lisinopril 2.5 mg in the morni ng and 5 mg in the evening and Crestor 10 mg. PAST MEDICAL HISTORY AND PAST SURGICAL HISTORY: Includes endometriosis, gastroesophageal reflux dise ase, IgA nephropathy, obstructive sleep apnea - resolved with weight loss and not on CPAP at this cinthya e, polycystic ovarian syndrome, psoriasis, hysterectomy. FAMILY HISTORY: Negative for renal disease or dialysis. SOCIAL HISTORY: Never smoked. She is and lives with her spouse. She works in the [employer]. REVIEW OF SYSTEMS: Twelve systems reviewed and negative. The positive review of systems includes so me anxiety and some lightheadedness as well as chest discomfort prior to arrival to the hospital, but no symptoms now. PHYSICAL EXAMINATION: GENERAL: Young white female who is awake, alert and oriented. She is not in any distress. VITAL SIGNS: Blood pressure is 133/86, pulse rate 74, temperature 36.8, and 96% on room air. HEENT: Mucous membrane is moist. NECK: Supple. No jugular venous distention. CHEST: Bilaterally clear to auscultation. CARDIOVASCULAR: S1 and S2 regular. ABDOMEN: Soft, nontender. EXTREMITIES: Show no edema. LABORATORY TEST: Shows normal kidney function with a BUN of 10 and creatinine of 0.6. Urine dipstic k done yesterday showed 2+ protein and 1+ blood, which is not an unusual finding for her. Renal ultr asound unremarkable. Chest x-ray unremarkable. ASSESSMENT AND PLAN: A 41-year-old female with known IgA nephropathy, but preserved kidney function, admitted with chest pain, anxiety, lightheadedness and high blood pressure. 1. IgA nephropathy: She reports a questionable history of gross hematuria a few weeks back. She cl aims she was seen by urology as well as had a cystoscopy done when she was first diagnosed with IgA n ephropathy. At this point, no further action is needed for IgA nephropathy. Gross hematuria intermi ttent is not uncommon in IgA nephropathy. Given her young age, I do not feel we have to do a more de tailed workup for hematuria. At this point, she does not need cystoscopy. No further recommendation from nephrology at this point. She has not seen Dr. Spears for a while and will be better to have a followup with Dr. Spears in nephrology clinic. 2. Chest pain/anxiety/lightheadedness/hypertensive urgency: This is being addressed by cardiology a nd I am not quite sure why her blood pressure was high and it is now normal with hardly any medicine added. There could have been a significant anxiety component. Defer to cardiology. Thank you very much for the consult. Job ID: [id number]
[2021-10-09] MEDS ORDERED: BUTALBITAL/ACETAMIN/CAFFEINE TAB PO STA (11:00)
--- NOTE | 2021-10-09 11:56 | Cardiology Progress Note ---
Date of Service October 09, 2021 Assessment & Plan (1) Hypertensive urgency: (2) Chest pain: (3) IgA nephropathy: (4) Sinus tachycardia: (5) PCOS (polycystic ovarian syndrome): (6) VERONICA (obstructive sleep apnea): (7) GERD (gastroesophageal reflux disease): Plan: It was my pleasure to see Mrs. Viramontes in cardiac consultation today. I believe her presenting symptoms are due to hypertensive urgency. I do not believe chest discomfort was due to ACS but myocardial strain. Is on low-dose lisinopril given her history of IgA nephropathy. Has tolerated low-dose metoprolol. Would discharge home on the Toprol tartrate 12.5 mg p.o. twice daily with a third dose to be taken as needed for increasing palpitations. My office will call to arrange follow-up as an outpatient. Overnight nocturnal pulse ox was unremarkable. Admission and Anticipated Discharge Date Admission Date: October 08, 2021 Subjective Patient seen and examined, chart reviewed. Only complaints at this time is that of a headache. No further cardiac complaints. Tolerating addition of metoprolol well. Review of Systems Review of Systems: All systems reviewed & are unremarkable except as noted in HPI & below Physical Exam Physical Exam: Physical Exam: General: Awake, alert and oriented x 3. No acute distress. HEENT: Normocephalic, atraumatic. Pupils equal, round and reactive to light and accommodation. Extraocular muscles are intact. Anicteric sclera. Moist mucous membranes. Neck: No JVD. No bruit. Cardiovascular: Regular. No S-4. Normal S-1 and S-2. No S-3. No murmurs, rubs or gallops. Pulmonary: Clear to auscultation bilaterally. No rales, rhonchi, or wheezing. Abdomen: Bowel sounds x 4, soft. No rebound, guarding or tenderness. No organomegaly. Extremities: No clubbing, cyanosis or edema. +2 pedal pulses bilaterally. Skin: Warm and dry. Results & Data ([facility]) Vital Signs (Past 12 Hours) Vital Signs Temp Pulse Pulse Resp BP Pulse Ox Pulse Ox 10/09/21 08:06 36.8 C 74 18 133/86 96 10/09/21 03:55 88 97 10/09/21 03:20 36.7 C 79 18 117/80 97 (1) Chest pain Chest pain type: unspecified Qualified Code(s): R07.9 - Chest pain, unspecified
--- NOTE | 2021-10-09 15:17 | Electrocardiogram Report ---
Test Reason : Blood Pressure : / mmHG Vent. Rate : 084 BPM Atrial Rate : 084 BPM P-R Int : 136 ms QRS Dur : 082 ms QT Int : 390 ms P-R-T Axes : 046 007 006 degrees QTc Int : 460 ms Normal sinus rhythm Normal ECG When compared with ECG of 08-OCT-2021 10:02, No significant change was found Confirmed by Enrique Vyas ([id number]) on 10/09/2021 3:17:11 PM Referred By: REFERRED SELF Confirmed By:Enrique Vyas
--- NOTE | 2021-10-09 15:45 | Discharge Summary ---
Date of Service October 09, 2021 Admission HPI Per Admitting Provider This is a 41-year-old female with PMHx of HTN, HLD, endometriosis, IgA nephropathy, obesity with BMI of 39.7 who presents to the ER with acute lightheadedness, dizziness and elevated blood pressure as high as systolic 180 and diastolic 110s. She was treated with a dose of nitro PO x 1 in the ER which improved her BP. 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 She checked her BP and was 180/100, but then continued to complete her morning tasks. After another hour or so, she thought that she would sit down, and relax, however her blood pressure recheck was still 178/110. She continued to feel worse therefore presented to the ER. She was started on fluids, and given nitro PO x 1. At no point did she have any chest pain, shortness of breath,or palpitations. At baseline she takes lisinopril 2.5 mg in the morning and 5 mg in the evening. As an outpatient she has been placed on this for kidney protection, and has been trialed to titrate up however blood pressure typically is too low to be able to do so. Her baseline blood pressure is 100/80. She also notes a history of unspecified tachycardia where she had seen Dr. Edwards as an outpatient about 3 years ago. She had been on medication for it before however is not no longer on a rate controlling med. She exercises routinely 4x per week with walks and circuit training. Yesterday the patient went wine tasting with her daughter and went to a [employer] where they tasted things throughout the day. She reports drinking 100 oz of water daily at baseline. Occasional alcohol consumption is not uncommon for her. She typically has 2 glasses of wine per week total. She has followed as an outpatient with Dr. Spears with nephrology, reports that she is likely due for repeat renal ultrasound very soon. She admits to seeing blood in her urine within the last week. She reports history of having microscopic hematuria however this is a change. She has had no medication changes recently. Denies other urinary co including dysuria, increased frequency or incontinence. Admission Exam Per Admitting Provider General: awake, alert, no apparent distress, obese with BMI of 39.7 Head: Normocephalic, atraumatic ENT: PERRL, EOMI, no pharyngeal exudate, mucous membranes moist Chest: Clear to auscultation, on room air, no adventitious breath sounds Cardiac: Regular rate and rhythm, no chest pressure with palpation, no murmur, no JVD, normal peripheral pulses, good capillary refill Abdominal: NABS x 4 quadrants, soft, nondistended, nontender to palpation, no rebound or guarding Extremities: Normal inspection, no peripheral edema or erythema, calfs nontender to palpation Psych: Normal mood and affect Neuro: AAO x 3, strength intact bilaterally and rated 5/5, no motor deficits, speech is clear, no peripheral sensory deficits Principal Diagnosis Hypertensive urgency Discharge Exam General: Lying comfortably in bed, not in distress, on room air HEENT: EOMI, TOÑITO, MMM Chest: Clear breath sounds bilaterally, no wheezes or crackles CVS: Regular rate and rhythm, normal heart sounds, no murmur Abdomen: Soft, non tender, not distended, normal bowel sounds Neuro: Awake, alert, orientedx4, conversing well, non focal Extremities: No cyanosis, clubbing or edema Discharge Data Allergies Allergy/AdvReac Type Severity Reaction Status Date / Time iodine Allergy Mild HIVES Verified 10/08/21 11:41 Penicillins Allergy Mild HIVES Verified 10/08/21 11:41 shellfish derived Allergy Mild HIVES Verified 10/08/21 11:41 Consultations 10/08/21 13:35 Consult Nephrology Routine 10/08/21 15:09 Consult Cardiology Routine Ordered Studies 10/08/21 13:40 US renal/blad retro comp DAILY Hospital Course (1) Hypertensive urgency: (2) Tachycardia: (3) Chest pain: (4) IgA nephropathy: Hospital course: 41-year-old female with history of IgA nephropathy who presented to the ED today with episode of lightheadedness, dizziness and elevated blood pressure 180/110 with tachycardia, while at work. Also had episode of chest tightness during that episode. She came to the ED, and was treated with a dose of p.o. nitro after which her blood pressure and symptoms improved with no recurrence. She was seen by cardiology and nephrology. Renal US with no acute abnormality. Echo with EF >70% with grade 1 diastolic dysfunction but no significant valvular pathology. Tropx3 negative. EKG unremarkable. Overnight oxygen saturation study unremarkable. Placed on low dose betablocker by cardio which she tolerated without issues. Being discharged on same per cardiology. She will follow up with cardio and nephro at discharge. She is comfortable and stable for discharge. Total Time Total Time Spent Total Time Spent (In Minutes): 35 Discharge Plan Discharge Items Patient Disposition: Home - Self-Care Reason For Visit: CHEST PRESSURE, HYPERTENSIVE URGENCY Discharge Diagnosis: Hypertensive urgency Activity: Resume your previous activity Non-emergency contact: Primary Care Provider, Field Logistics Coordinator and Marriage Therapist Call non-emergency contact if: you have any medication questions and your symptoms worsen Follow-up/Referrals: Sunil Beard MD [Primary Care Provider] - (Date & Time 10/15/2021 11:00 AM Provider Milvia [facility] ) Diet: Regular Addtl Attending Provider Instructions: Start lopressor 12.5 mg twice daily. you can take a third dose as needed for palpitations Follow up with your kidney and heart doctors Pending Studies at Discharge: No Stand-Alone Forms: [employer], Smoking Cessation Medications and DC Order Prescriptions: New metoprolol tartrate 25 mg tablet 12.5 mg PO BID Qty: 30 RF: 0 Continued lisinopril 5 mg tablet 5 mg PO QPM RF: 0 lisinopril 2.5 mg tablet 2.5 mg PO QAM RF: 0 rosuvastatin 10 mg tablet 10 mg PO QPM RF: 0 Discharge Orders: Discharge Order (Routine); Ordered 10/09/21 Ordered By: Tr Metz/Other Patient Handouts: Taking a Beta-Andrea Admission Data Admit Date/Time: 10/08/21 13:35 Attending Provider: Tr Nath Admit Provider: Tr Nath Primary Care Provider: Sunil Beard Other Providers: Rogerio Mosley ; Santy Means Other Interventions: Discharge Summary Assessment (RN) Last Done: 10/09/21 14:02
== END 2021-10-09 14:45 | disposition home or self-care (01) ==
LOC: 2S 09:45 → ED 09:45 → 2S 14:46